=== PATIENT | male | born 1940 | race African-American/Black ===

== ENCOUNTER 2019-05-04 12:25 | Observation (INO) | payer MEDICARE, OTHER ==
[~2019-05-04] VITALS: Ht 188 cm; Wt 86.4 kg
[~2019-05-04 12:25] MED LIST: AMLODIPINE BESYL5 MG PO; GABAPENTIN600 MG PO; GLIMEPIRIDE1 MG PO; HYDROCODON-ACE1 EAC9 PO; LABETALOL HCL300 MG PO; LEVOTHYROXINE125 MCG PO; LISINOPRIL40 MG PO
--- OUTSIDE RECORDS SUMMARY | 2019-05-04 12:29 | XMS REPORT | Continuity of Care Document ---
Author Author [facility] Address Unknown Phone Unavailable Care Team Providers Care Water Supply Technician Name Role Phone [email or web address] Unavailable Unavailable Problems Problem Status Onset Date Classification Date Reported Comments Source WEAKNESS Active 11/18/2018 [facility] ABNORMAL LABS Active 11/18/2018 [facility] UNK Active 06/08/2015 [facility] 240.9 242.90 Active 06/08/2015 [facility] 242.00 GOITER, TOXIC DIFFUSE / 241.0 COL Active 11/29/2014 [facility] 729.81 - SWELLING OF [place] Active 01/07/2014 [facility] [place] 242.90 HYPERTHYROIDISM Active 11/10/2013 [facility] Acid reflux Active Problem 11/22/2018 [facility] Chronic pain1 Active Problem 11/22/2018 back [facility] Diabetes Active Problem 11/22/2018 [facility] Goiter Active Problem 11/22/2018 [facility] BELKOFSKI (Confirmed) Active Problem 11/22/2018 [facility] Hypertension Active Problem 11/22/2018 [facility] Irregular heartbeat2 Active Problem 11/22/2018 on Labetalol [facility] Neuropathy3 Active Problem 11/22/2018 bilateral upper and lower extremities [facility] Dentures2 Active Problem 06/26/2015 upper [facility] Irregular heartbeat3 Active Problem 06/26/2015 on Labetalol [facility] Neuropathy4 Active Problem 06/26/2015 bilateral upper and lower extremities [facility] GOITER NOS Active [facility] THYROTOX NOS NO CRISIS Active [facility] Medications Medication Details Route Status Patient Instructions Ordering Provider Order Date Source 12 HR Acetaminophen 325 MG / Oxycodone Hydrochloride 7.5 MG Extended Release Oral Tablet 1 tab, PO, PRN, 0 Refill(s) Active 11/19/2018 [facility] Protonix 40 mg, 1 tab, Route: PO, Drug form: ECTAB, Before Breakfast, Dosing Weight 95.455, kg, Start date: 11/19/18 7:30:00 [employer], Duration: 30 day, Stop date: 12/18/18 7:30:00 CDTNotes: Tablet should not be c hewed or crushed. (Same as: Protonix) Inactive 11/19/2018 [facility] Lovenox 40 mg, 0.4 mL, Route: SUB-Q, Drug form: INJ, [id number], Dosing Weight 95.455, kg, Start date: 11/18/18 20:00:00 [employer], Duration: 30 day, Stop date: 12/17/18 20:00:00 CDTNotes: (Same as: Lovenox) No Longer Active 11/19/2018 [facility] NS 1,000 mL 1,000 mL, Rate: 75 ml/hr, Infuse over: 13.3 hr, Route: IV, Dosing Weight 95.455 kg, Total Volume: 1,000, Start date: 11/18/18 19:42:00 [employer], Duration: 30 day, Stop date: 12/18/18 19:41:00 CDT, 2.24, m2 No Longer Active 11/19/2018 [facility] Mucinex 600 mg, 1 tab, Route: PO, Drug form: ERTAB, Q12H, Dosing Weight 95.455, kg, PRN Congestion, Start date: 11/18/18 19:27:00 [employer], Duration: 30 day, Stop date: 12/18/18 19:26:00 CDTNotes: (Same as: Guaifenesin LA, Humibid LA, Mucinex) "Do Not Crush" Take medication with plenty of water. No Longer Active 11/19/2018 [facility] Tessalon Perles 100 mg, 1 cap, Route: PO, Drug form: CAP, TID, Dosing Weight 95.455, kg, PRN Cough, Start date: 11/18/18 19:27:00 [employer], Duration: 30 day, Stop date: 12/18/18 19:26:00 CDTNotes: (Same As: Tessalon Olga es) "Do Not Crush" No Longer Active 11/19/2018 [facility] Simethicone 80 mg, 1 tab, Route: CHEW, Drug form: CHEWTAB, QID-After Meals, Dosing Weight 95.455, kg, PRN as needed for gas, Start date: 11/18/18 19:27:00 [employer], Duration: 30 day, Stop date: 12/18/18 19:26:00 CDTNotes: (Same as: Mylicon) No Longer Active 11/19/2018 [facility] Maalox Advanced Regular Strength SUSP 30 mL, Route: PO, Drug Form: SUSP, Dosing Weight 95.455, kg, QID-After Meals, PRN as needed for indigestion, Routine, Start date: 11/18/18 19:27:00 [employer], Duration: 30 day, Stop date: 12/18/18 19:26:00 CDTNotes: (aluminum hydroxide-magnesium hyd-simethicone 280-101-38pp/5ml 30 ml ud SRIDEVI) No Longer Active 11/19/2018 [facility] Ondansetron 4 mg, 2 mL, Route: IVP, Drug form: INJ, Q6H, Dosing Weight 95.455, kg, PRN Nausea & Vomiting, Start date: 11/18/18 19:27:00 [employer], Duration: 30 day, Stop date: 12/18/18 19:26:00 CDTNotes: (Same as: Erin) MEDICATION WASTE Product Size: 4 mg Product Wasted: ___ mg No Longer Active 11/19/2018 [facility] Diphenhydramine 25 mg, 1 tab, Route: PO, Drug form: TAB, Q6H, Dosing Weight 95.455, kg, PRN as needed for allergy symptoms, Start date: 11/18/18 19:27:00 [employer], Duration: 30 day, Stop date: 12/18/18 19:26:00 CDT No Longer Active 11/19/2018 [facility] Acetaminophen 650 mg, 2 tab, Route: PO, Drug form: TAB, Q6H, Dosing Weight 95.455, kg, PRN For Temp > 100.4 F, Start date: 11/18/18 19:27:00 [employer], Duration: 30 day, Stop date: 12/18/18 19:26:00 CDTNotes: Do not exceed 4 gm/day. (Same as: Tylenol) No Longer Active 11/19/2018 [facility] Melatonin 3 mg, 1 tab, Route: PO, Drug form: TAB, Bedtime, Dosing Weight 95.455, kg, PRN Insomnia, Start date: 11/18/18 19:27:00 [employer], Duration: 30 day, Stop date: 12/18/18 19:26:00 CDTNotes: (Same as: Melatonin) No Longer Active 11/19/2018 [facility] Trazodone 50 mg, 1 tab, Route: PO, Drug form: TAB, Bedtime, Dosing Weight 95.455, kg, PRN Insomnia, Start date: 11/18/18 19:27:00 [employer], Duration: 30 day, Stop date: 12/18/18 19:26:00 CDTNotes: (Same As: Desyrel) No Longer Active 11/19/2018 [facility] Glucagon 1 mg, Route: IM, Drug form: PDR/INJ, PRN, Dosing Weight 95.455, kg, PRN Blood Glucose Results, Start date: 11/18/18 19:27:00 [employer], Duration: 30 day, Stop date: 12/18/18 20:26:00 CDT No Longer Active 11/19/2018 [facility] Docusate 100 mg, 1 cap, Route: PO, Drug form: CAP, BID, Dosing Weight 95.455, kg, PRN as needed for constipation, Start date: 11/18/18 19:27:00 [employer]E [employer], Duration: 30 day, Stop date: 12/18/18 19:26:00 CDTNotes: (Same as: Colace) (Do Not Crush) No Longer Active 11/19/2018 [facility] POLYETHYLENE GLYCOL 3350 17 gm, 1 pkt, Route: PO, Drug form: PWDR, Daily, Dosing Weight 95.455, kg, PRN Constipation, Start date: 11/18/18 19:27:00 [employer], Duration: 30 day, Stop date: 12/18/18 19:26:00 CDTNotes: Dissolve in 8 oz of water or juice. (Same as: Miralax) No Longer Active 11/19/2018 [facility] Bisacodyl 10 mg, 1 supp, Route: DE, Drug form: SUPP, Daily, Dosing Weight 95.455, kg, PRN Constipation, Start date: 11/18/18 19:27:00 [employer]E [employer], Duration: 30 day, Stop date: 12/18/18 19:26:00 CDTNotes: (Same As: Dulcolax, Bisco-Lax) No Longer Active 11/19/2018 [facility] Seroquel 25 mg, 1 tab, Route: PO, Drug form: TAB, BID, Dosing Weight 95.455, kg, PRN Agitation, Start date: 11/18/18 19:27:00 [employer], Duration: 30 day, Stop date: 12/18/18 19:26:00 CDTNotes: (Same as: SEROquel) No Longer Active 11/19/2018 [facility] Hydralazine 10 mg, 0.5 mL, Route: IVP, Drug form: INJ, Q4H, Dosing Weight 95.455, kg, PRN Hypertension, Priority: Routine, Start date: 11/18/18 19:27:00 [employer], Duration: 30 day, Stop date: 12/18/18 19:26:00 CDTNotes: (Same as: Apresoline) Push over 5 minutes No Longer Active 11/19/2018 [facility] Morphine 2 mg, 1 mL, Route: IVP, Drug form: SOLN, Q4H, Dosing Weight 95.455, kg, PRN Pain Score 7-10, Start date: 11/18/18 19:27:00 [employer], Duration: 30 day, Stop date: 12/18/18 19:26:00 CDT No Longer Active 11/19/2018 [facility] Robitussin-AC oral syrup 10 ml, Route: PO, Drug Form: LIQ, Dosing Weight 95.455, kg, Q4H, PRN Cough/Congestion, Start date: 11/18/18 19:27:00 [employer]E [employer], Duration: 30 day, Stop date: 12/18/18 19:26:00 CDTNotes: (Same As: Robitussin AC) No Longer Active 11/19/2018 [facility] Acetaminophen 325 MG / Hydrocodone Bitartrate 5 MG Oral Tablet [[place] 5/325] 1 tab, Route: PO, Drug Form: TAB, Dosing Weight 95.455, kg, Q6H, PRN Pain Score 1-3, Start date: 11/18/18 19:27:00 [employer]E [employer], Duration: 30 day, Stop date: 12/18/18 19:26:00 CDTNotes: (Same as: [place] 325/5) Do not exceed 4gm/day of acetaminophen. No Longer Active 11/19/2018 [facility] Nicotine 21 mg, 1 patch, Route: TOP, Drug form: ERFILM, Daily, Dosing Weight 95.455, kg, PRN as needed for smoking cessation, Start date: 11/18/18 19:27:00 [employer]E [employer], Duration: 30 day, Stop date: 12/18/18 19:26:00 CDT Notes: (Same as: Habitrol) "Remove old patch before application of new patch" WASTE: F/P - P Waste Black; E - P Waste Black No Longer Active 11/19/2018 [facility] Dextrose 50% Syringe 25 gm, 50 mL, Route: IVP, Drug Form: INJ, Dosing Weight 95.455, kg, PRN, PRN Blood Glucose Results, Start date: 11/18/18 19:27:00 [employer], Duration: 30 day, Stop date: 12/18/18 20:26:00 CDT No Longer Active 11/19/2018 [facility] Saline Flush 0.9% 10 mL, Route: IVP, Drug Form: INJ, Dosing Weight 95.455, kg, PRN, PRN Line Flush, Start date: 11/18/18 14:40:00 [employer], Duration: 30 day, Stop date: 12/18/18 15:39:00 CDTNotes: (Same as: BD Posiflush) No Longer Active 11/18/2018 [facility] pneumococcal capsular polysaccharide type 1 vaccine / pneumococcal capsular polysaccharide type 10A vaccine / pneumococcal capsular polysaccharide type 11A vaccine / pneumococcal capsular polysaccharide type 12F vaccine / pneumococcal capsular polysacchar 0.5 mL, Route: IM, Drug Form: INJ, Daily, Start date: 06/23/15 9:00:00, Duration: 1 doses or times, Stop date: 06/23/15 9:00:00Notes: (Same as: Pneumovax 23) Refrigerate Inactive 06/23/2015 [facility] Methimazole 10 mg, 1 tab, Route: PO, Drug form: TAB, Every Other Day, Dosing Weight 88.636, kg, Start date: 06/23/15 9:00:00, Duration: 30 day, Stop date: 07/21/15 9:00:00 Inactive 06/23/2015 [facility] Lisinopril 40 mg, 2 tab, Route: PO, Drug form: TAB, Daily, Dosing Weight 88.636, kg, Start date: 06/23/15 9:00:00, Duration: 30 day, Stop date: 07/22/15 9:00:00Notes: (Same as: Prinivil, Zestril) Inactive 06/23/2015 [facility] Labetalol 300 mg, 3 tab, Route: PO, Drug form: TAB, Daily, Dosing Weight 88.636, kg, Start date: 06/23/15 9:00:00, Duration: 30 day, Stop date: 07/22/15 9:00:00Notes: With food. (Same as:Trandate, Normodyne) Inactive 06/23/2015 [facility] Furosemide 80 mg, 2 tab, Route: PO, Drug form: TAB, Daily, Dosing Weight 88.636, kg, Start date: 06/23/15 9:00:00, Duration: 30 day, Stop date: 07/22/15 9:00:00Notes: (Same as: Lasix) May cause GI upset. Give with food or milk. Inactive 06/23/2015 [facility] Pravastatin 20 mg, 1 tab, Route: PO, Drug form: TAB, Bedtime, Dosing Weight 88.636, kg, Start date: 06/22/15 21:00:00, Duration: 30 day, Stop date: 07/21/15 21:00:00Notes: (Same as: Pravachol) No Longer Active 06/23/2015 [facility] latanoprost 1 drp, Route: BOTH EYES, Bedtime, Drug form: SOLN, Start date: 06/22/15 21:00:00, Duration: 30 day, Stop date: 07/21/15 21:00:00Notes: Keep refrigerated. (Same as:Xalatan) No Longer Active 06/23/2015 [facility] Amlodipine 5 mg, 1 tab, Route: PO, Drug form: TAB, Bedtime, Dosing Weight 88.636, kg, Start date: 06/22/15 21:00:00, Duration: 30 day, Stop date: 07/21/15 21:00:00Notes: (Same as: Norvasc) No Longer Active 06/23/2015 [facility] glimepiride 1 mg, 1 tab, Route: PO, Drug form: TAB, BID, Dosing Weight 88.636, kg, Start date: 06/22/15 17:00:00, Duration: 30 day, Stop date: 07/22/15 9:00:00Notes: (Same as: Amaryl) No Longer Active 06/22/2015 [facility] glucagon 1 mg, Route: IM, Drug form: PDR/INJ, PRN, PRN Blood Glucose Results, Start date: 06/22/15 15:56:00, Duration: 30 day, Stop date: 07/22/15 15:55:00 No Longer Active 06/22/2015 [facility] Dextrose 50% in Water IV 50 mL, Route: IVP, Start date: 06/22/15 15:55:00, Duration: 30 day, Stop date: 07/22/15 15:54:00, PRN Blood Glucose Results No Longer Active 06/22/2015 [facility] Dextrose 50% in Water IV 25 mL, Route: IVP, Start date: 06/22/15 15:54:00, Stop date: 07/22/15 15:53:00, PRN Blood Glucose Results No Longer Active 06/22/2015 [facility] gabapentin 400 MG Oral Capsule 400 mg, 1 cap, Route: PO, Drug form: CAP, TID, Dosing Weight 88.636, kg, Start date: 06/22/15 13:00:00, Duration: 30 day, Stop date: 07/22/15 9:00:00Notes: (Same as: Neurontin) No Longer Active 06/22/2015 [facility] dorzolamide 1 drp, Route: BOTH EYES, TID, Drug form: SOLN, Start date: 06/22/15 13:00:00, Duration: 30 day, Stop date: 07/22/15 9:00:00Notes: Same as: Trusopt Non-Formulary Drug No Longer Active 06/22/2015 [facility] Insulin, Aspart, Human 4 unit, 0.04 mL, Route: SUB-Q, Drug form: SOLN, TID-Before Meals, Dosing Weight 88.636, kg, PRN Blood Glucose Results, Start date: 06/22/15 11:04:00, Duration: 30 day, Stop date: 07/22/15 11:03:00Notes: Roll in palms of hands gently; Do not shake vigorously. (Same as: NovoLOG) "single patient use only" Stable for 28 days at room temperature. Expires in days from Date No Longer Active 06/22/2015 [facility] Acetaminophen 325 MG / Hydrocodone Bitartrate 5 MG Oral Tablet 1 tab, Route: PO, Drug Form: TAB, Dosing Weight 88.636, kg, Q4H, PRN Pain Score 1-3, Start date: 06/22/15 11:04:00, Duration: 30 day, Stop date: 07/22/15 11:03:00Notes: (Same as: [place] 325/5) Do not exceed 4gm/day of acetaminophen. No Longer Active 06/22/2015 [facility] Morphine 2 mg, 1 mL, Route: IVP, Drug form: INJ, Q3H, Dosing Weight 88.636, kg, PRN Pain Score 1-3, Start date: 06/22/15 11:04:00, Duration: 30 day, Stop date: 07/22/15 11:03:00Notes: (Same as:MORPhine Sulfate) No Longer Active 06/22/2015 [facility] Calcium Chloride 0.0014 MEQ/ML / Potassium Chloride 0.004 MEQ/ML / Sodium Chloride 0.103 MEQ/ML / Sodium Lactate 0.028 MEQ/ML Injectable Solution 1,000 mL, Rate: 75 ml/hr, Infuse over: 13.3 hr, Route: IV, Dosing Weight 88.636 kg, Total Volume: 1,000, Start date: 06/22/15 11:04:00, Duration: 30 day, Stop date: 07/22/15 11:03:00 No Longer Active 06/22/2015 [facility] Ondansetron 4 mg, 2 mL, Route: IVP, Drug form: INJ, Q6H, Dosing Weight 88.636, kg, PRN Nausea & Vomiting, Start date: 06/22/15 11:04:00, Duration: 30 day, Stop date: 07/22/15 11:03:00Notes: (Same as: Erin) MEDICATION WASTE Product Size: 4 mg Product Wasted: ___ mg No Longer Active 06/22/2015 [facility] Diphenhydramine 25 mg, 1 tab, Route: PO, Drug form: TAB, Bedtime, Dosing Weight 88.636, kg, PRN Insomnia, Start date: 06/22/15 11:04:00, Duration: 30 day, Stop date: 07/22/15 11:03:00 No Longer Active 06/22/2015 [facility] Acetaminophen 325 MG / Hydrocodone Bitartrate 10 MG Oral Tablet [[place] 10/325] 1 tab, Route: PO, Drug Form: TAB, Dosing Weight 88.636, kg, Q6H, PRN Pain, Start date: 06/22/15 11:03:00, Duration: 30 day, Stop date: 07/22/15 11:02:00 Inactive 06/22/2015 [facility] Ofirmev 1,000 mg, Route: IV, Drug form: INJ, ONCE, Dosing Weight 88.636, kg, PRN Pain, for > or=50 kg, Start date: 06/22/15 11:03:00 Inactive 06/22/2015 [facility] Ondansetron 4 mg, Route: IVP, ONCE, Dosing Weight 88.636, kg, PRN Nausea & Vomiting, Start date: 06/22/15 11:03:00 Inactive 06/22/2015 [facility] Hydromorphone 0.5 mg, Route: IVP, Q5Min, Dosing Weight 88.636, kg, PRN Pain Score 7-10, Start date: 06/22/15 11:03:00, Duration: 4 doses or times, Stop date: Limited # of times Inactive 06/22/2015 [facility] Flumazenil 0.2 mg, Route: IVP, PRN, Dosing Weight 88.636, kg, PRN Benzodiazepine Reversal, Initial dose, Start date: 06/22/15 11:03:00, Duration: 30 day, Stop date: 07/22/15 11:02:00 Inactive 06/22/2015 [facility] Naloxone 0.04 mg, Route: IVP, Q2MIN, Dosing Weight 88.636, kg, PRN Narcotic Reversal, Start date: 06/22/15 11:03:00, Duration: 8 doses or times, Stop date: Limited # of times Inactive 06/22/2015 [facility] Fentanyl 50 microgram, Route: IVP, Q5Min, Dosing Weight 88.636, kg, PRN Pain Score 7-10, Start date: 06/22/15 11:03:00, Duration: 2 doses or times, Stop date: Limited # of times Inactive 06/22/2015 [facility] Oxycodone 5 mg, Route: PO, Drug form: TAB, Q4H, Dosing Weight 88.636, kg, PRN Pain Score 4-6, Start date: 06/22/15 11:03:00, Duration: 30 day, Stop date: 07/22/15 11:02:00 Inactive 06/22/2015 [facility] Sodium Chloride 0.154 MEQ/ML Injectable Solution 1,000 mL, Rate: 25 ml/hr, Infuse over: 40 hr, Route: IV, Dosing Weight 88.636 kg, Total Volume: 1,000, Start date: 06/22/15 7:27:00, Duration: 30 day, Stop date: 07/22/15 7:26:00 Inactive 06/22/2015 [facility] Calcium Chloride 0.0014 MEQ/ML / Potassium Chloride 0.004 MEQ/ML / Sodium Chloride 0.103 MEQ/ML / Sodium Lactate 0.028 MEQ/ML Injectable Solution 1,000 mL, Rate: 25 ml/hr, Infuse over: 40 hr, Route: IV, Dosing Weight 88.636 kg, Total Volume: 1,000, Start date: 06/22/15 7:27:00, Duration: 30 day, Stop date: 07/22/15 7:26:00 Inactive 06/22/2015 [facility] Cefazolin 2 gm, Route: IVPB, ONCALL, Dosing Weight 88.636, kg, Start date: 06/22/15 7:00:00, Duration: 30 day, Stop date: 07/22/15 6:59:00 Inactive 06/22/2015 [facility] Dexamethasone 8 mg, Route: IV, ONCALL, Dosing Weight 88.636, kg, Start date: 06/22/15 7:00:00, Duration: 30 day, Stop date: 07/22/15 6:59:00 Inactive 06/22/2015 [facility] hydromorphone 4 mg oral tablet 4 mg=1 tab, PO, Bedtime, PRN Pain, Back Pain, 0 Refill(s)Special Instructions: Back Pain Active 06/17/2015 [facility] amLODIPine 5 mg oral tablet 5 mg=1 tab, PO, Bedtime, # 30 tab, 0 Refill(s) Active 06/17/2015 [facility] dorzolamide 1 drp, BOTH EYES, TID, 0 Refill(s) Active 06/17/2015 [facility] latanoprost 1 drp, BOTH EYES, Bedtime, 0 Refill(s) Active 06/17/2015 [facility] Acetaminophen 325 MG / Hydrocodone Bitartrate 10 MG Oral Tablet [[place] 10/325] 1 tab, PO, TID, PRN Pain, # 60 tab, 0 Refill(s) Active 06/17/2015 [facility] lisinopril 40 mg oral tablet 40 mg=1 tab, PO, Daily, # 30 tab, 0 Refill(s) Active 06/17/2015 [facility] gabapentin 400 MG Oral Capsule 400 mg=1 cap, PO, TID, # 90 cap, 1 Refill(s) Active 06/17/2015 [facility] furosemide 80 mg oral tablet 80 mg=1 tab, PO, Daily, # 30 tab, 0 Refill(s) Active 06/17/2015 [facility] glimepiride 1 mg oral tablet 1 mg=1 tab, PO, BID, # 30 tab, 0 Refill(s) Active 06/17/2015 [facility] pravastatin 20 mg oral tablet 20 mg=1 tab, PO, Bedtime, # 30 tab, 0 Refill(s) Active 06/17/2015 [facility] labetalol 300 mg oral tablet 300 mg=1 tab, PO, Daily, # 180 tab, 0 Refill(s) Active 06/17/2015 [facility] methimazole 10 mg oral tablet See Instructions, 1 tab every other day, 3 Refill(s)Special Instructions: 1 tab every other day No Longer Active 06/17/2015 [facility] Allergies, Adverse Reactions, Alerts Substance Category Reaction Severity Reaction type Status Date Reported Comments Source Motrin Assertion Drug allergy Active [facility] Immunizations Immunization Date Given Site Status Last Updated Comments Source pneumococcal 23-valent vaccine<sup>1</sup> 06/23/2015 Not Given [facility] pneumococcal 23-valent vaccine 06/23/2015 Not Given [facility] Results Order Name Results Value Reference Range Date Interpretation Comments Source ANEMIA STUDY Vitamin B12 Lvl >2000 254 - 1320 11/19/2018 [facility] CHEM PANEL eGFR 37 11/19/2018 Result Comment: The eGFR is calculated using the CKD-EPI formula. In most young, healthy individuals the eGFR will be >90 mL/min/1.73m2. The eGFR declines with age. An eGFR of 60-89 may be normal in some populations, particularly the elderly, for whom the CKD-EPI formula has not been extensively validated. Use of the eGFR is not recommended in the following populations:

Individuals with unstable creatinine concentrations, including patients and those with serious co-morbid conditions.

Patients with extremes in muscle mass or diet.

The data above are obtained from the National Kidney Disease Education Program (NKDEP) which additionally recommends that when the eGFR is used in patients with extremes of body mass index for purposes of drug dosing, the eGFR should be multiplied by the estimated BMI. [facility] CHEM PANEL Glucose Lvl 153 70 - 99 11/19/2018 [facility] CHEM PANEL Sodium Lvl 144 135 - 145 11/19/2018 [facility] CHEM PANEL BUN 41 7 - 22 11/19/2018 [facility] CHEM PANEL Potassium Lvl 3.2 3.5 - 5.1 11/19/2018 [facility] CHEM PANEL Creatinine Lvl 1.96 0.50 - 1.40 11/19/2018 [facility] CHEM PANEL Calcium Lvl 9.5 8.5 - 10.5 11/19/2018 [facility] CHEM PANEL AGAP 7.2 10.0 - 20.0 11/19/2018 [facility] CHEM PANEL CO2 31 24 - 32 11/19/2018 [facility] CHEM PANEL Chloride Lvl 109 95 - 109 11/19/2018 [facility] MCH 31.2 27.0 - 31.0 11/19/2018 [facility] RDW 15.9 11.5 - 14.5 11/19/2018 [facility] MCHC 33.1 32.0 - 36.0 11/19/2018 [facility] MPV 8.5 7.4 - 10.4 11/19/2018 [facility] Platelet 194 133 - 450 11/19/2018 [facility] WBC 5.4 3.7 - 10.4 11/19/2018 [facility] Hgb 12.4 14.0 - 18.0 11/19/2018 [facility] RBC 3.96 4.70 - 6.10 11/19/2018 [facility] MCV 94.4 80.0 - 94.0 11/19/2018 [facility] Hct 37.4 42.0 - 54.0 11/19/2018 [facility] LIPIDS CHD Risk 2.78 4.00 - 7.30 11/19/2018 [facility] LIPIDS Chol 139 <=199 mg/dL 11/19/2018 [facility] LIPIDS VLDL 14 11/19/2018 [facility] LIPIDS HDL 50 >=61 mg/dL 11/19/2018 [facility] LIPIDS LDL (Calculated) 75 <=99 mg/dL 11/19/2018 [facility] LIPIDS Trig 72 <=149 mg/dL 11/19/2018 [facility] SPECIAL CHEMISTRY Hgb A1C 6.9 <=5.6 % 11/19/2018 [facility] URINE AND STOOL UA Bili Negative *NA* (11/18/18 5:36 PM) Negative 11/18/2018 [facility] URINE AND STOOL UA Hyal Cast 3 0 - 2 11/18/2018 [facility] URINE AND STOOL UA Nitrite Negative (11/18/18 5:36 PM) Negative 11/18/2018 [facility] URINE AND STOOL UA Sq Epi Few /LPF Few /LPF 11/18/2018 [facility] URINE AND STOOL UA Leuk Est Small *ABN* (11/18/18 5:36 PM) Negative 11/18/2018 [facility] URINE AND STOOL UA WBC 10 0 - 5 11/18/2018 [facility] URINE AND STOOL UA Blood Negative (11/18/18 5:36 PM) Negative 11/18/2018 [facility] URINE AND STOOL UA RBC 2 0 - 2 11/18/2018 [facility] URINE AND STOOL UA Bacteria Occasional /HPF None Seen /HPF 11/18/2018 [facility] URINE AND STOOL UA Urobilinogen <=1.0 mg/dL 0.1 - 1.0 11/18/2018 [facility] URINE AND STOOL UA Protein Negative (11/18/18 5:36 PM) Negative 11/18/2018 [facility] URINE AND STOOL UA Glucose Negative *NA* (11/18/18 5:36 PM) Negative 11/18/2018 [facility] URINE AND STOOL UA Ketones Negative *NA* (11/18/18 5:36 PM) Negative 11/18/2018 [facility] URINE AND STOOL UA Mucus Few /LPF None Seen /LPF 11/18/2018 [facility] URINE AND STOOL UA pH 5.0 5.0 - 8.0 11/18/2018 [facility] URINE AND STOOL UA Spec Grav 1.020 <=1.030 11/18/2018 [facility] URINE AND STOOL UA Turbidity Slight *ABN* (11/18/18 5:36 PM) Clear 11/18/2018 [facility] URINE AND STOOL UA Color Yellow *NA* (11/18/18 5:36 PM) Yellow 11/18/2018 [facility] CARDIAC ENZYMES Total CK 523 12 - 191 11/18/2018 [facility] CARDIAC ENZYMES Troponin-I <0.02 0.00 - 0.40 11/18/2018 [facility] CARDIAC ENZYMES BNP 4 <=100 pg/mL 11/18/2018 [facility] CHEM PANEL Globulin 4.3 2.7 - 4.2 11/18/2018 [facility] CHEM PANEL B/C Ratio 20 6 - 25 11/18/2018 [facility] CHEM PANEL AGAP 7.7 10.0 - 20.0 11/18/2018 [facility] CHEM PANEL A/G Ratio 0.9 0.7 - 1.6 11/18/2018 [facility] CHEM PANEL eGFR 31 11/18/2018 Result Comment: The eGFR is calculated using the CKD-EPI formula. In most young, healthy individuals the eGFR will be >90 mL/min/1.73m2. The eGFR declines with age. An eGFR of 60-89 may be normal in some populations, particularly the elderly, for whom the CKD-EPI formula has not been extensively validated. Use of the eGFR is not recommended in the following populations:

Individuals with unstable creatinine concentrations, including patients and those with serious co-morbid conditions.

Patients with extremes in muscle mass or diet.

The data above are obtained from the National Kidney Disease Education Program (NKDEP) which additionally recommends that when the eGFR is used in patients with extremes of body mass index for purposes of drug dosing, the eGFR should be multiplied by the estimated BMI. [facility] CHEM PANEL Bili Total 0.2 0.2 - 1.3 11/18/2018 [facility] CHEM PANEL Sodium Lvl 140 135 - 145 11/18/2018 [facility] CHEM PANEL BUN 45 7 - 22 11/18/2018 [facility] CHEM PANEL Glucose Lvl 230 70 - 99 11/18/2018 [facility] CHEM PANEL Creatinine Lvl 2.30 0.50 - 1.40 11/18/2018 [facility] CHEM PANEL Potassium Lvl 3.7 3.5 - 5.1 11/18/2018 [facility] CHEM PANEL Calcium Lvl 9.8 8.5 - 10.5 11/18/2018 [facility] CHEM PANEL CO2 30 24 - 32 11/18/2018 [facility] CHEM PANEL Chloride Lvl 106 95 - 109 11/18/2018 [facility] CHEM PANEL Alk Phos 64 39 - 136 11/18/2018 [facility] CHEM PANEL AST 20 0 - 37 11/18/2018 [facility] CHEM PANEL ALT 34 0 - 65 11/18/2018 [facility] CHEM PANEL Albumin Lvl 3.9 3.5 - 5.0 11/18/2018 [facility] CHEM PANEL Total Protein 8.2 6.4 - 8.4 11/18/2018 [facility] HEMATOLOGY Lymphocytes # 0.9 1.0 - 5.5 11/18/2018 [facility] HEMATOLOGY Monocytes # 0.6 0.0 - 0.8 11/18/2018 [facility] HEMATOLOGY Eosinophils # 0.1 0.0 - 0.5 11/18/2018 [facility] HEMATOLOGY Monocytes 10.7 2.0 - 12.0 11/18/2018 [facility] HEMATOLOGY Segs 69.9 45.0 - 75.0 11/18/2018 [facility] HEMATOLOGY Lymphocytes 16.3 20.0 - 40.0 11/18/2018 [facility] HEMATOLOGY Eosinophils 2.6 0.0 - 4.0 11/18/2018 [facility] HEMATOLOGY Basophils 0.5 0.0 - 1.0 11/18/2018 [facility] HEMATOLOGY Neutrophils # 3.9 1.5 - 8.1 11/18/2018 [facility] HEMATOLOGY RDW 15.8 11.5 - 14.5 11/18/2018 [facility] HEMATOLOGY MCH 30.9 27.0 - 31.0 11/18/2018 [facility] HEMATOLOGY MCHC 33.0 32.0 - 36.0 11/18/2018 [facility] HEMATOLOGY MCV 93.7 80.0 - 94.0 11/18/2018 [facility] HEMATOLOGY Platelet 210 133 - 450 11/18/2018 [facility] HEMATOLOGY MPV 7.9 7.4 - 10.4 11/18/2018 [facility] HEMATOLOGY Hct 39.9 42.0 - 54.0 11/18/2018 [facility] HEMATOLOGY Hgb 13.2 14.0 - 18.0 11/18/2018 [facility] HEMATOLOGY WBC 5.6 3.7 - 10.4 11/18/2018 [facility] HEMATOLOGY RBC 4.26 4.70 - 6.10 11/18/2018 [facility] CHEM PANEL Calcium Lvl 9.2 8.5 - 10.5 06/23/2015 [facility] CHEM PANEL Calcium Lvl 9.3 8.5 - 10.5 06/23/2015 [facility] CHEM PANEL Calcium Lvl 9.4 8.5 - 10.5 06/22/2015 [facility] PARATHYROID PROFILE PTH Intact 18.8 11.1 - 79.5 06/22/2015 [facility] PARATHYROID PROFILE PTH Intact 13.3 11.1 - 79.5 06/22/2015 [facility] CHEM PANEL eGFR 40 06/17/2015 Result Comment: The eGFR is calculated using the CKD-EPI formula. In most young, healthy individuals the eGFR will be >90 mL/min/1.73m2. The eGFR declines with age. An eGFR of 60-89 may be normal in some populations, particularly the elderly, for whom the CKD-EPI formula has not been extensively validated. Use of the eGFR is not recommended in the following populations:

Individuals with unstable creatinine concentrations, including patients and those with serious co-morbid conditions.

Patients with extremes in muscle mass or diet.

The data above are obtained from the National Kid[employer] Disease Education Program (NKDEP) which additionally recommends that when the eGFR is used in patients with extremes of body mass index for purposes of drug dosing, the eGFR should be multiplied by the estimated BMI. [facility] CHEM PANEL Creatinine Lvl 1.9 0.5 - 1.4 06/17/2015 [facility] CHEM PANEL BUN 29 7 - 22 06/17/2015 [facility] CHEM PANEL Glucose Lvl 145 70 - 99 06/17/2015 [facility] CHEM PANEL Sodium Lvl 138 135 - 145 06/17/2015 [facility] CHEM PANEL Potassium Lvl 4.2 3.5 - 5.1 06/17/2015 [facility] CHEM PANEL Chloride Lvl 105 95 - 109 06/17/2015 [facility] CHEM PANEL AGAP 6.2 10.0 - 20.0 06/17/2015 [facility] CHEM PANEL CO2 31 24 - 32 06/17/2015 [facility] HEMATOLOGY Monocytes # 0.5 0.0 - 0.8 06/17/2015 [facility] HEMATOLOGY Eosinophils # 0.3 0.0 - 0.5 06/17/2015 [facility] HEMATOLOGY Segs 61.4 45.0 - 75.0 06/17/2015 [facility] Segs-Bands # 3.2 1.5 - 8.1 06/17/2015 [facility] Monocytes 8.9 2.0 - 12.0 06/17/2015 [facility] Lymphocytes 24.0 20.0 - 40.0 06/17/2015 [facility] Eosinophils 5.1 0.0 - 4.0 06/17/2015 [facility] Basophils 0.6 0.0 - 1.0 06/17/2015 [facility] Lymphocytes # 1.2 1.0 - 5.5 06/17/2015 [facility] PTT 29.2 22.9 - 35.8 06/17/2015 [facility] PT 12.5 12.0 - 14.7 06/17/2015 [facility] INR 0.90 0.85 - 1.17 06/17/2015 [facility] RBC 4.35 4.70 - 6.10 06/17/2015 [facility] WBC 5.2 3.7 - 10.4 06/17/2015 [facility] Hgb 12.6 14.0 - 18.0 06/17/2015 [facility] MCV 91.4 80.0 - 94.0 06/17/2015 [facility] Hct 39.7 42.0 - 54.0 06/17/2015 [facility] MCH 29.1 27.0 - 31.0 06/17/2015 [facility] RDW 15.3 11.5 - 14.5 06/17/2015 [facility] MCHC 31.8 32.0 - 36.0 06/17/2015 [facility] MPV 9.3 7.4 - 10.4 06/17/2015 [facility] Platelet 121 133 - 450 06/17/2015 [facility] Pathology Reports No Data Provided for This Section Diagnostic Reports Report Value Date Source Brain wo contrast MRI Patient Name: PIERRE ABEBE : 1940; Age: 78 years Male MR: [id number] Study: Brain wo contrast MRI 11/18/2018 19:39 [employer] Clinical Indication: - ams. COMPARISON: Computed axial tomography scan 11/18/2018. TECHNIQUE: MRI of the brain is performed without gadolinium contrast. Multiplanar T1, T2, FLAIR and diffusion weighted imaging are submitted. Full and complete exam was performed. FINDINGS: BRAIN PARENCHYMA: There is mild generalized cortical atrophy. Moderate nonspecific periventricular white matter foci of increased T2 and FLAIR signal are seen, likely related to small vessel disease. There is no mass effect or midline shift. There are no extra-axial fluid collections. The corpus callosum appears normal. There is no diffusion weighted imaging or ADC map abnormality to suggest acute/subacute ischemia. There is no magnetic susceptibility to suggest recent or remote intracranial hemorrhage. CEREBELLOPONTINE REGIONS AND SKULL BASE: The cerebellopontine angles appear normal. The skull base, craniocervical junction, and brainstem are normal. The optic chiasm is normal. The sella and pineal regions are normal. VENTRICLES: The ventricles are normal in size and configuration. The basilar cisterns are normal. VESSELS: The expected intracranial flow voids are present. ORBITS, VISUALIZED PARANASAL SINUSES AND MASTOIDS: The visualized orbits are normal. The paranasal sinuses are normal. The mastoid air cells are clear. IMPRESSION: 1. No acute intracranial abnormality without acute stroke, hemorrhage or mass. 2. Generalized brain parenchymal atrophy with associated nonspecific periventricular white matter disease changes/small vessel disease. : [id number] 11/18/2018 [facility] Ext Lower Venous Doppler Bilat US EXAM: Bilateral lower extremity venous Doppler ultrasound HISTORY: Bilateral lower extremity edema COMPARISON: Ultrasound 01/12/2018 TECHNIQUE: Sonographic evaluation of the bilateral lower extremity deep veins was performed using high resolution B-mode imaging, along with pulse and color Doppler imaging. FINDINGS: Right lower extremity: The common femoral, femoral and popliteal veins and visualized posterior tibial/calf veins are patent. Left lower extremity: The common femoral, femoral and popliteal veins and visualized posterior tibial/calf veins are patent. IMPRESSION: No deep vein thrombosis is seen in the lower extremities. TVU PC 11/18/2018 [facility] Chest 1view DX Clinical Indication: - lethargy; Technique: Frontal view of the chest was obtained. Comparison: None available. FINDINGS: No evidence of focal airspace consolidation, pulmonary edema, pleural effusion or pneumothorax. 2 tiny (3 mm) nodules are seen projecting over the right midlung, possibly granulomas. The cardiomediastinal silhouette is within normal limits. The trachea is midline. No acute osseous abnormality is identified. IMPRESSION: No chest radiographic evidence of acute cardiopulmonary disease. 2 tiny (3 mm) nodules are seen projecting over the right midlung, possibly granulomas. Comparison to prior chest imaging, if available, would be helpful. If no such imaging is available, a short-term radiologic follow-up (3-6 months) may be obtained. SL: SHELBIE 11/18/2018 [facility] Brain wo contrast CT Clinical Indication: - lethargy. Comparison: None. TECHNIQUE: CT images were obtained from the foramen magnum to the vertex without the use of intravenous contrast on a multidetector CT. CT imaging was performed with exposure control parameters to reduce radiation dose. Coronal and sagittal reconstructions were obtained. CT imaging performed at this location utilizes radiation dose optimization techniques which include one or more of the following: -Automated exposure control -Adjustment of the mA and/or kV according to patient size -Use of iterative reconstruction technique CT Radiation Dose DLP 1533.69 mGy-cm FINDINGS: BRAIN PARENCHYMA: The brain parenchyma is normal with normal dwyer and white interfaces. The periventricular white matter appears unremarkable. No focal mass lesions on this noncontrast head CT. No mass effect, midline shift or edema. There are no intra-axial or extra-axial fluid collections, intraventricular or intraparenchymal hemorrhage. No low attenuation demarcating areas on this non- contrast CT to suggest subacute stroke. The pineal, sellar, brainstem, cerebellum and skull base regions appear unremarkable. The visualized carotid siphon and vertebral vessels appear unremarkable on this noncontrast CT. VENTRICLES: The lateral ventricles, third and fourth ventricles appear unremarkable. The basilar cisterns are normal. ORBITS, MASTOIDS AND PARANASAL SINUSES: The visualized orbits are unremarkable. The visualized paranasal sinuses are unremarkable. The mastoid air cells are clear. SKULL: There are no osseous abnormalities. If there is further concern for intracranial pathology or acute stroke, MRI of the brain may be performed for complete assessment. IMPRESSION: No acute abnormality in the brain. SL: [id number] 11/18/2018 [facility] Thyroid US Addendum: The patient presented on 12/13/2013 for thyroid biopsy. The patient is currently on aspirin and as a result biopsy/FNA could not be performed on the current visit. The patient's thyroid ultrasound study from 11/10/2013 and nuclear medicine study from 11/16/2013 were reviewed. The nodule in the lower pole of left lobe of thyroid gland, which is felt to be nonfunctioning, is likely too deep to be accessible by ultrasound guided FNA. These findings and concerns were discussed with the patient at the time of his visit. He will discuss other options with Samantha Herring. Findings telephoned to Dr. Herring on 12/14/2014 at 1115 hours. SL:13 12/14/2014 [facility] Thyroid US Addendum: The patient presented on 12/13/2014 for thyroid biopsy. The patient is currently on aspirin and as a result biopsy/FNA could not be performed on the current visit. The patient's thyroid ultrasound study from 11/10/2013 and nuclear medicine study from 11/16/2013 were reviewed. The nodule in the lower pole of left lobe of thyroid gland, which is felt to be nonfunctioning, is likely too deep to be accessible by ultrasound guided FNA. These findings and concerns were discussed with the patient at the time of his visit. He will discuss other options with Dr. Rachell Herring. Findings telephoned to Dr. Herring on 12/14/2014 at 1115 hours. SL:13 Dictated on: 12/14/2014 11:07:36AM Interpreted by: MD Nguyen Munish Transcribed by: [email or web address] 12/14/2014 11:07:37AM Signed by: MD Nguyen Munish 12/14/2014 11:25:18AM Exam: Thyroid ultrasound Reason for Exam: Goiter. Thyrotoxicosis. Comparison Exam: None Discussion: Multiple axial and sagittal images were obtained of the thyroid gland. The right lobe of the thyroid gland measures 6.6 x 2.4 x 3.2 cm. The right lobe is enlarged and heterogeneous in echogenicity. There are multiple abutting nodules seen. The borders cannot be adequately delineated. Vascular flow within the thyroid parenchyma is slightly elevated. The isthmus measures 0.6 cm in width and is within normal limits. The left lobe of the thyroid gland measures 5.3 x 3.3 x 2.5 cm. The left lobe is enlarged and heterogeneous in echogenicity. There are multiple abutting nodules seen. The borders cannot be adequately delineated. Vascular flow within the thyroid parenchyma is slightly elevated. No lymphadenopathy seen within the thyroid region. Impression: 1. Multinodular hypervascular goiter as detailed above. Correlate for thyroiditis. 11/10/2013 [facility] [place] Consultation Notes No Data Provided for This Section Discharge Summaries No Data Provided for This Section History and Physicals No Data Provided for This Section Vital Signs Vital Sign Value Date Comments Source Systolic (mm Hg) 127 11/19/2018 [facility] Diastolic (mm Hg) 63 11/19/2018 [facility] Temperature Oral (F) 97.8 F 11/19/2018 [facility] Respitory Rate 17 11/19/2018 [facility] Heart Rate 57 11/19/2018 [facility] Heart Rate 56 11/19/2018 [facility] Respitory Rate 18 11/19/2018 [facility] Temperature Oral (F) 98.2 F 11/19/2018 [facility] Systolic (mm Hg) 137 11/19/2018 [facility] Diastolic (mm Hg) 68 11/19/2018 [facility] Systolic (mm Hg) 119 11/19/2018 [facility] Diastolic (mm Hg) 57 11/19/2018 [facility] Respitory Rate 17 11/19/2018 [facility] Heart Rate 65 11/19/2018 [facility] Temperature Oral (F) 98.3 F 11/19/2018 [facility] Weight 95.455 11/18/2018 [facility] BMI Calculated 27.02 11/18/2018 [facility] Height 187.96 cm 11/18/2018 [facility] Temperature Oral (F) 98.6 F 06/23/2015 [facility] Heart Rate 60 06/23/2015 [facility] Respitory Rate 20 06/23/2015 [facility] Systolic (mm Hg) 195 06/23/2015 [facility] Diastolic (mm Hg) 78 06/23/2015 [facility] Heart Rate 58 06/23/2015 [facility] Respitory Rate 16 06/23/2015 [facility] Systolic (mm Hg) 147 06/23/2015 [facility] Diastolic (mm Hg) 65 06/23/2015 [facility] Temperature Oral (F) 98.4 F 06/23/2015 [facility] Respitory Rate 14 06/23/2015 [facility] Temperature Oral (F) 98.7 F 06/23/2015 [facility] Heart Rate 64 06/23/2015 [facility] Systolic (mm Hg) 139 06/23/2015 [facility] Diastolic (mm Hg) 61 06/23/2015 [facility] Weight 95.455 06/22/2015 [facility] Height 208.28 cm 06/22/2015 [facility] BMI Calculated 22 06/22/2015 [facility] Weight 88.636 06/17/2015 [facility] BMI Calculated 25.09 06/17/2015 [facility] Height 187.96 cm 06/17/2015 [facility] Encounters Location Location Details Encounter Type Encounter Number Reason For Visit Attending Provider ADM Date DC Date Status Source [facility] Outpatient [id number] Allassia Herring 12/13/2014 12/14/2014 [facility] OBS Observation Patient [id number] Elsa Sampson 06/22/2015 06/23/2015 [facility] Observation [id number] Piterayesha Kolton 11/18/2018 11/19/2018 [facility] Outpatient [id number] 242.90 HYPERTHYROIDISM ALLASSIA HERRING Active [facility] Procedures Procedure Code Date Perfomer Comments Source Repair of inguinal hernia<sup>1</sup> [id number] x2 [facility] Assessment and Plan Assessment and Plan Date Source Extracted from:Title: Discharge Summary * Author: Jean-Paul Hi MD Date: 11/19/18 Discharge Information Disposition to home Condition: Stable exam medications: See med reconciliation form Diet: Heart healthy Discharge Plan In the event of any worsening symptoms patient advised to come back to the ED for further evaluation Discharge summary to greater than 35 minutes Extracted from:Title: General Admission H&P * Author: Jean-Paul Hi MD Date: 11/18/18 Impression and Plan 1. Metabolic encephalopathy now back to normal baseline 2. Lower extremity weakness 3. Chronic back pain on pain control 4. 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 Hypertension Plan: Get MRI of the brain, CT brain: Negative, neurology consultation, TSH, vitamin B12 Resume pain control medications IV fluids, a.m. labs Resume same antihypertensive medications PT/OT eval Lovenox for DVT prophylaxis 11/19/2018 [facility] Extracted from:Title: Clinical Document Author: Elsa Sampson MD Date: 06/23/15 Elsa Sampson MD ENT phone [phone] Discharge Summary: Hospital Course: over night stay unhappy due to inattention in hospital but does complain of some pain. no hoarseness, signs of hypocalcemia exam: wound healing well. no swelling antoinette 55 cc documented. removed. calcium 9.2, last pth 18. Discharge Instructions: see below Medication List Active Medications Ordered acetaminophen-hydrocodone: 1 tab, PO, Q4H, PRN: Pain Score 1-3. acetaminophen-hydrocodone: 2 tab, PO, Q4H, PRN: Pain Score 4-6. acetaminophen-hydrocodone: 1 tab, PO, TID, for 20 day, PRN: Pain, 60 tab, 0 Refill(s). amLODIPine: 5 mg, 1 tab, PO, Bedtime. amLODIPine: 5 mg, 1 tab, PO, Bedtime, 30 tab, 0 Refill(s). Dextrose 50% in Water IV: 25 gm, 50 mL, IVP, PRN, PRN: Blood Glucose Results. Dextrose 50% in Water IV: 12.5 gm, 25 mL, IVP, PRN, PRN: Blood Glucose Results. diphenhydrAMINE: 25 mg, 1 tab, PO, Bedtime, PRN: Insomnia. dorzolamide ophthalmic: 1 drp, BOTH EYES, TID. dorzolamide ophthalmic: 1 drp, BOTH EYES, TID, 0 Refill(s). furosemide: 80 mg, 2 tab, PO, Daily. furosemide: 80 mg, 1 tab, PO, Daily, 30 tab, 0 Refill(s). gabapentin: 400 mg, 1 cap, PO, TID. gabapentin: 400 mg, 1 cap, PO, TID, 90 cap, 1 Refill(s). glimepiride: 1 mg, 1 tab, PO, BID. glimepiride: 1 mg, 1 tab, PO, BID, 30 tab, 0 Refill(s). glucagon: 1 mg, IM, PRN, PRN: Blood Glucose Results. hydromorphone: 4 mg, 1 tab, PO, Bedtime, for 7 day, Back Pain, PRN: Pain, 0 Refill(s). insulin aspart: 1 unit, 0.01 mL, SUB-Q, Bedtime, PRN: Blood Glucose Results. insulin aspart: 2 unit, 0.02 mL, SUB-Q, Bedtime, PRN: Blood Glucose Results. insulin aspart: 3 unit, 0.03 mL, SUB-Q, Bedtime, PRN: Blood Glucose Results. insulin aspart: 4 unit, 0.04 mL, SUB-Q, Bedtime, PRN: Blood Glucose Results. insulin aspart: 1 unit, 0.01 mL, SUB-Q, TID-Before Meals, PRN: Blood Glucose Results. insulin aspart: 2 unit, 0.02 mL, SUB-Q, TID-Before Meals, PRN: Blood Glucose Results. insulin aspart: 3 unit, 0.03 mL, SUB-Q, TID-Before Meals, PRN: Blood Glucose Results. insulin aspart: 4 unit, 0.04 mL, SUB-Q, TID-Before Meals, PRN: Blood Glucose Results. insulin aspart: 5 unit, 0.05 mL, SUB-Q, TID-Before Meals, PRN: Blood Glucose Results. labetalol: 300 mg, 3 tab, PO, Daily. labetalol: 300 mg, 1 tab, PO, Daily, 180 tab, 0 Refill(s). Lactated Ringers Injection IV 1,000 mL: 75 ml/hr, IV, Stop: 07/22/15 11:03:00. latanoprost ophthalmic: 1 drp, BOTH EYES, Bedtime. latanoprost ophthalmic: 1 drp, BOTH EYES, Bedtime, 0 Refill(s). lisinopril: 40 mg, 2 tab, PO, Daily. lisinopril: 40 mg, 1 tab, PO, Daily, 30 tab, 0 Refill(s). methimazole: 10 mg, 1 tab, PO, Every Other Day. morphine Sulfate: 2 mg, 1 mL, IVP, Q3H, PRN: Pain Score 1-3. ondansetron: 4 mg, 2 mL, IVP, Q6H, PRN: Nausea and Vomiting. pneumococcal 23-valent vaccine: 0.5 mL, IM, Daily. pravastatin: 20 mg, 1 tab, PO, Bedtime. pravastatin: 20 mg, 1 tab, PO, Bedtime, 30 tab, 0 Refill(s). Medications Inactivated in the Last 72 Hours acetaminophen: 1,000 mg, 100 mL, PYXIS, ONCE. acetaminophen: 1,000 mg, IV, ONCE, PRN: Pain. acetaminophen-hydrocodone: 1 tab, PO, Q6H, PRN: Pain. atropine: 1 mg, 10 mL, PYXIS, ONCE. ceFAZolin: 2 gm, 100 mL, PYXIS, ONCE. ceFAZolin: 2 gm, IVPB, ONCALL. ceFAZolin: 1 gm, PYXIS, ONCE. dexamethasone: 8 mg, 2 mL, PYXIS, ONCE. dexamethasone: 8 mg, IV, ONCALL. EPINEPHrine-lidocaine: 20 mL, PYXIS, ONCE. fentaNYL: 100 microgram, 2 mL, PYXIS, ONCE. fentaNYL: 100 microgram, 2 mL, PYXIS, ONCE. fentaNYL: 50 microgram, IVP, Q5Min, PRN: Pain Score 7-10. flumazenil: 0.2 mg, IVP, PRN, PRN: Benzodiazepine Reversal. hydromorphone: 0.5 mg, IVP, Q5Min, PRN: Pain Score 7-10. hydromorphone: 1 mg, 1 mL, PYXIS, ONCE. Lactated Ringers Injection IV: 1,000 mL, PYXIS, ONCE. Lactated Ringers Injection IV: 1,000 mL, PYXIS, ONCE. Lactated Ringers Injection IV: 1,000 mL, PYXIS, ONCE. Lactated Ringers Injection IV 1000 mL: 25 ml/hr, IV, Stop: 07/22/15 7:26:00. lidocaine: 2 mL, PYXIS, ONCE. lidocaine: 10 mL, PYXIS, ONCE. methimazole: See Instructions, 1 tab every other day, 3 Refill(s). methimazole: 10 mg, 2 tab, PYXIS, ONCE. midazolam: 2 mg, 2 mL, PYXIS, ONCE. naloxone: 0.04 mg, IVP, Q2MIN, PRN: Narcotic Reversal. ondansetron: 4 mg, 2 mL, PYXIS, ONCE. ondansetron: 4 mg, 2 mL, PYXIS, ONCE. ondansetron: 4 mg, IVP, ONCE, PRN: Nausea and Vomiting. ondansetron: 4 mg, 2 mL, PYXIS, ONCE. oxyCODONE: 5 mg, PO, Q4H, PRN: Pain Score 4-6. oxyCODONE: 10 mg, PO, Q4H, PRN: Pain Score 7-10. propofol: 200 mg, 20 mL, PYXIS, ONCE. rocuronium: 50 mg, 5 mL, PYXIS, ONCE. Sodium Chloride 0.9% IV: 100 mL, PYXIS, ONCE. Sodium Chloride 0.9% IV 1000 mL: 25 ml/hr, IV, Stop: 07/22/15 7:26:00. succinylcholine: 200 mg, 10 mL, PYXIS, ONCE. Activity: no strenous Diet: diabetic diet Follow Up: 1 wk Symptoms to Watch For: signs of infection, hypocalcemia Discharge Status: stable Final Dx: s/p total thyroidectomy. hx of hypercalcemia Extracted from:Title: Clinical Document Author: Elsa Sampson MD Date: 06/22/15 ENT Progress Note Elsa Sampson MD Attending: Elsa Sampson MD Service: Ear Nose Throat Code status: None Specified=FULL CODE Reason for Admission: 240.9 242.90 Working DRG: None Documented Isolation: None Documented Consulting Physicians: (none on file) Allergies: Motrin Vitals and Temp: Vitals Tmp(F) Pulse BP RR SpO2 FIO2 06/22 13:45 ---- 73 168/85 15 100 2.0L/m 06/22 13:30 97.1 83 164/83 16 98 2.0L/m 06/22 13:15 ---- 76 169/63 11 95 2.0L/m 06/22 13:00 ---- 85 164/85 16 92 --- 06/22 12:45 ---- 83 164/83 15 92 --- 24 Hr Tmax: 98.3F (36.83c) at 06/22 06:30 Vital Signs are the last 5 in the past 48 hours. SUBJECTIVE: sleepy OBJECTIVE: c/o throat pain. no sob, voice intact. intact pth 13 ( wnl.) ca 10 ( wnl.) EXAM: incision intact no erythema/ hematoma antoinette drain sanguinous 30 cc ASSESSMENT: s/p total thyroidectomy PLAN and TREATMENT: 23 hour observation. antoinette drain. pain control. will observe calcium/ pth level. will cont methamozole for now due to previous hyperthryoid. DIAGNOSES and PROBLEMS: Active Problems (9) Acid reflux Chronic pain Dentures Diabetes Goiter [place] (hard of hearing) Hypertension Irregular heartbeat Neuropathy I/O Intake Output Balance 06/22/2015 7a-3p 1500.00 50.00 1450.00 As of 13:58 3p-11p 0.00 0.00 0.00 11p-7a 0.00 0.00 0.00 Totals 1500.00 50.00 1450.00 06/21/2015 7a-3p 0.00 0.00 0.00 3p-11p 0.00 0.00 0.00 11p-7a 0.00 0.00 0.00 Totals 0.00 0.00 0.00 06/20/2015 7a-3p 0.00 0.00 0.00 3p-11p 0.00 0.00 0.00 11p-7a 0.00 0.00 0.00 Totals 0.00 0.00 0.00 Medications (31) Active Scheduled Meds (10): 06/22/15 amLODIPine 5 mg PO Bedtime 06/22/15 dorzolamide ophthalmic 1 drp BOTH EYES TID 06/23/15 furosemide 80 mg PO Daily 06/22/15 gabapentin (gabapentin 400 mg oral capsule) 400 mg PO TID 06/22/15 glimepiride 1 mg PO BID 06/23/15 labetalol 300 mg PO Daily 06/22/15 latanoprost ophthalmic 1 drp BOTH EYES Bedtime 06/23/15 lisinopril 40 mg PO Daily 06/23/15 methimazole PO Every Other Day 06/22/15 pravastatin 20 mg PO Bedtime Unscheduled Meds: None PRN Meds (20): 06/22/15 acetaminophen-hydrocodone (acetaminophen-hydrocodone 325 mg-5 mg oral tablet) 1 tab PO Q4H 06/22/15 acetaminophen-hydrocodone (acetaminophen-hydrocodone 325 mg-5 mg oral tablet) 2 tab PO Q4H 06/22/15 diphenhydrAMINE 25 mg PO Bedtime 06/22/15 fentaNYL 50 microgram IVP Q5Min 06/22/15 flumazenil 0.2 mg IVP PRN 06/22/15 hydromorphone 0.5 mg IVP Q5Min 06/22/15 insulin aspart 1 unit SUB-Q Bedtime 06/22/15 insulin aspart 2 unit SUB-Q Bedtime 06/22/15 insulin aspart 3 unit SUB-Q Bedtime 06/22/15 insulin aspart 4 unit SUB-Q Bedtime 06/22/15 insulin aspart 1 unit SUB-Q TID-Before Meals 06/22/15 insulin aspart 2 unit SUB-Q TID-Before Meals 06/22/15 insulin aspart 3 unit SUB-Q TID-Before Meals 06/22/15 insulin aspart 4 unit SUB-Q TID-Before Meals 06/22/15 insulin aspart 5 unit SUB-Q TID-Before Meals 06/22/15 morphine Sulfate 2 mg IVP Q3H 06/22/15 naloxone 0.04 mg IVP Q2MIN 06/22/15 ondansetron 4 mg IVP Q6H 06/22/15 oxyCODONE 5 mg PO Q4H 06/22/15 oxyCODONE 10 mg PO Q4H One Time Meds: None Continuous Infusions (1): 06/22/15 Lactated Ringers Injection IV 1000 mL 1,000 mL 75 ml/hr 24hr Labs 06/22 1202 Calcium Lvl 10.0 PTH Intact 13.3 06/22 0620 Glucose POC 124 H 06/23/2015 [facility] Plan of Care No Data Provided for This Section Social History Social History Date Source Social History TypeResponse Alcohol Previous treatment: None. Smoking Status Never smoker; Ready to change: No; Concerns about tobacco use in household: No; Exposure to Tobacco Smoke None; Cigarette Smoking Last 365 Days No; Reg Smoking Cessation Counseling No entered on: 11/18/18 06/17/2015 [facility] Family History No Data Provided for This Section Advance Directives No Data Provided for This Section Functional Status No Data Provided for This Section
--- OUTSIDE RECORDS SUMMARY | 2019-05-04 12:29 | XMS REPORT | Summary of Care ---
Author Organization Unknown Address Unknown Phone Unavailable Encounter HQ Encntr_alias(FIN) [id number] Date(s): 12/13/14 - 12/13/14 [facility] [address] [place] [address]- Discharge Disposition: Home Physician Attending: Ana Euceda MD Physician_Referring: Ana Euceda MD Vital Signs No data available for this section Problem List No data available for this section Allergies, Adverse Reactions, Alerts Substance Reaction Severity Status NKDA Active Medications No data available for this section Results No data available for this section Immunizations No data available for this section Procedures No data available for this section Social History No data available for this section Assessment and Plan No data available for this section
--- OUTSIDE RECORDS SUMMARY | 2019-05-04 12:29 | XMS REPORT | Summary of Care ---
Author Author [facility] Organization [facility] Address Unknown Phone Unavailable Encounter HERBERTH Fernandez(EZIO) [id number] Date(s): 11/18/18 - 11/19/18 [facility] [address] [place] [address]- Discharge Disposition: Home or Self Care Attending Physician: Jean-Paul Hi MD Admitting Physician: Jean-Paul Hi MD Vital Signs 1 2 3 Most recent to oldest [Reference Range]: 187.96 cm (11/18/18 2:36 PM) Height 97.8 DegF (11/19/18 11:23 AM) 98.2 DegF (11/19/18 7:43 AM) 98.3 DegF (11/19/18 3:23 AM) Temperature Oral [96.4-99.1 DegF] 127/63 mmHg (11/19/18 11:23 AM) 137/68 mmHg (11/19/18 7:43 AM) 119/57 mmHg (11/19/18 3:23 AM) Blood Pressure [90-140/60-90 mmHg] 17 BRMIN (11/19/18 11:23 AM) 18 BRMIN (11/19/18 7:43 AM) 17 BRMIN (11/19/18 3:23 AM) Respiratory Rate [14-20 BRMIN] 57 bpm *LOW* (11/19/18 11:23 AM) 56 bpm *LOW* (11/19/18 7:43 AM) 65 bpm (11/19/18 3:23 AM) Peripheral Pulse Rate [60-100 bpm] 95.455 kg (11/18/18 2:36 PM) Weight 27.02 m2 (11/18/18 2:36 PM) Body Mass Index Problem List Condition Effective Dates Status Health Status Informant Acid Active reflux(Confirmed) Chronic Active pain(Confirmed)1 Diabetes(Confirmed) Active Goiter(Confirmed) Active [place] (hard of Active hearing)(Confirmed) Hypertension(Confirm Active ed) Irregular Active heartbeat(Confirmed) 2 Neuropathy(Confirmed Active )3 1back 2on Labetalol 3bilateral upper and lower extremities Allergies, Adverse Reactions, Alerts Substance Reaction Severity Status Motrin Active Medications acetaminophen 650 mg, 2 tab, Route: PO, Drug form: TAB, Q6H, Dosing Weight 95.455, kg, PRN For Temp > 100.4 F, Start date: 11/18/18 19:27:00 [employer], Duration: 30 day, Stop date: 12/18/18 19:26:00 CDT Notes: Do not exceed 4 gm/day. (Same as: Tylenol) Start Date: 11/18/18 Stop Date: 11/19/18 Status: Discontinued acetaminophen-oxyCODONE 325 mg-7.5 mg oral tablet, extended release 1 tab, PO, PRN, 0 Refill(s) Start Date: 11/19/18 Status: Ordered bisacodyl 10 mg, 1 supp, Route: CO, Drug form: SUPP, Daily, Dosing Weight 95.455, kg, PRN Constipation, Start date: 11/18/18 19:27:00 [employer]IDENT, Duration: 30 day, Stop date: 19:26:00 CDT Notes: (Same As: Dulcolax, Bisco-Lax) Start Date: 11/18/18 Stop Date: 11/19/18 Status: Discontinued Dextrose 50% Syringe 25 gm, 50 mL, Route: IVP, Drug Form: INJ, Dosing Weight 95.455, kg, PRN, PRN Blo od Glucose Results, Start date: 11/18/18 19:27:00 [employer]IDENT, Duration: 30 day, Stop da te: 12/18/18 20:26:00 CDT Start Date: 11/18/18 Stop Date: 11/19/18 Status: Discontinued Dextrose 50% Syringe 12.5 gm, 25 mL, Route: IVP, Drug Form: INJ, Dosing Weight 95.455, kg, PRN, PRN B lood Glucose Results, Start date: 11/18/18 19:27:00 [employer]ICE [employer]IDENT, Duration: 30 day, Stop date: 12/18/18 20:26:00 CDT Start Date: 11/18/18 Stop Date: 11/19/18 Status: Discontinued diphenhydrAMINE 25 mg, 1 tab, Route: PO, Drug form: TAB, Q6H, Dosing Weight 95.455, kg, PRN as n eeded for allergy symptoms, Start date: 11/18/18 19:27:00 [employer]IDENT, Duration: 30 day, Stop date: 12/18/18 19:26:00 CDT Start Date: 11/18/18 Stop Date: 11/19/18 Status: Discontinued docusate 100 mg, 1 cap, Route: PO, Drug form: CAP, BID, Dosing Weight 95.455, kg, PRN as needed for constipation, Start date: 11/18/18 19:27:00 [employer]ICE PRESIDENT, Duration: [address] day, St op date: 12/18/18 19:26:00 CDT Notes: (Same as: Colace) (Do Not Crush) Start Date: 11/18/18 Stop Date: 11/19/18 Status: Discontinued glucagon 1 mg, Route: IM, Drug form: PDR/INJ, PRN, Dosing Weight 95.455, kg, PRN Blood Gl ucose Results, Start date: 11/18/18 19:27:00 [employer]IDENT, Duration: 30 day, Stop date: 0 12/18/18 20:26:00 CDT Start Date: 11/18/18 Stop Date: 11/19/18 Status: Discontinued hydrALAZINE 10 mg, 0.5 mL, Route: IVP, Drug form: INJ, Q4H, Dosing Weight 95.455, kg, PRN Hy pertension, Priority: Routine, Start date: 11/18/18 19:27:00 [employer]IDENT, Duration: 30 d ay, Stop date: 12/18/18 19:26:00 CDT Notes: (Same as: Apresoline)Push over 5 minutes Start Date: 11/18/18 Stop Date: 11/19/18 Status: Discontinued Lovenox 40 mg, 0.4 mL, Route: SUB-Q, Drug form: INJ, [id number], Dosing Weight 95.455, kg, Start date: 11/18/18 20:00:00 [employer]IDENT, Duration: 30 day, Stop date: 12/17/18 20:00: 00 CDT Notes: (Same as: Lovenox) Start Date: 11/18/18 Stop Date: 11/19/18 Status: Discontinued Maalox Advanced Regular Strength SUSP 30 mL, Route: PO, Drug Form: SUSP, Dosing Weight 95.455, kg, QID-After Meals, CO N as needed for indigestion, Routine, Start date: 11/18/18 19:27:00 [employer]ICE [employer]IDENT, Duratio n: 30 day, Stop date: 12/18/18 19:26:00 CDT Notes: (aluminum hydroxide-magnesium hyd-simethicone [phone]/5ml 30 ml ud S US) Start Date: 11/18/18 Stop Date: 11/19/18 Status: Discontinued melatonin 3 mg, 1 tab, Route: PO, Drug form: TAB, Bedtime, Dosing Weight 95.455, kg, PRN I nsomnia, Start date: 11/18/18 19:27:00 [employer]IDENT, Duration: 30 day, Stop date: 19:26:00 CDT Notes: (Same as: Melatonin) Start Date: 11/18/18 Stop Date: 11/19/18 Status: Discontinued morphine Sulfate 2 mg, 1 mL, Route: IVP, Drug form: SOLN, Q4H, Dosing Weight 95.455, kg, PRN Pain Score 7-10, Start date: 11/18/18 19:27:00 [employer]IDENT, Duration: 30 day, Stop date: 19:26:00 CDT Start Date: 11/18/18 Stop Date: 11/19/18 Status: Discontinued Mucinex 600 mg, 1 tab, Route: PO, Drug form: ERTAB, Q12H, Dosing Weight 95.455, kg, PRN Congestion, Start date: 11/18/18 19:27:00 [employer]IDENT, Duration: 30 day, Stop date: 12/05 01/23 19:26:00 CDT Notes: (Same as: Guaifenesin LA, Humibid LA, Mucinex)"Do Not Crush" Take medica tion with plenty of water. Start Date: 11/18/18 Stop Date: 11/19/18 Status: Discontinued nicotine 21 mg, 1 patch, Route: TOP, Drug form: ERFILM, Daily, Dosing Weight 95.455, kg, PRN as needed for smoking cessation, Start date: 11/18/18 19:27:00 [employer]IDENT, Duration : 30 day, Stop date: 12/18/18 19:26:00 CDT Notes: (Same as: Habitrol)"Remove old patch before application of new patch"WAST E: F/P - P Waste Black; E - P Waste Black Start Date: 11/18/18 Stop Date: 11/19/18 Status: Discontinued Reliance 5/325 oral tablet 1 tab, Route: PO, Drug Form: TAB, Dosing Weight 95.455, kg, Q6H, PRN Pain Score 1-3, Start date: 11/18/18 19:27:00 [employer]ICE PRESIDENT, Duration: 30 day, Stop date: 12/18/18 19 :26:00 CDT Notes: (Same as: Reliance 325/5) Do not exceed 4gm/day of acetaminophen. Start Date: 11/18/18 Stop Date: 11/19/18 Status: Discontinued NS 1,000 mL 1,000 mL, Rate: 75 ml/hr, Infuse over: 13.3 hr, Route: IV, Dosing Weight 95.455 kg, Total Volume: 1,000, Start date: 11/18/18 19:42:00 [employer]ICE PRESIDENT, Duration: [address] day, St op date: 12/18/18 19:41:00 CDT, 2.24, m2 Start Date: 11/18/18 Stop Date: 11/19/18 Status: Discontinued ondansetron 4 mg, 2 mL, Route: IVP, Drug form: INJ, Q6H, Dosing Weight 95.455, kg, PRN Nause a & Vomiting, Start date: 11/18/18 19:27:00 [employer]IDENT, Duration: 30 day, Stop date: 12/18/18 19:26:00 CDT Notes: (Same as: Zofran) MEDICATION WASTE Product Size: 4 mgProduct Was reginald: ___ mg Start Date: 11/18/18 Stop Date: 11/19/18 Status: Discontinued polyethylene glycol 3350 17 gm, 1 pkt, Route: PO, Drug form: PWDR, Daily, Dosing Weight 95.455, kg, PRN C onstipation, Start date: 11/18/18 19:27:00 [employer] VICE PRESIDENT, Duration: 30 day, Stop date: 19:26:00 CDT Notes: Dissolve in 8 oz of water or juice.(Same as: Miralax) Start Date: 11/18/18 Stop Date: 11/19/18 Status: Discontinued Protonix 40 mg, 1 tab, Route: PO, Drug form: ECTAB, Before Breakfast, Dosing Weight 95.45 5, kg, Start date: 11/19/18 7:30:00 [employer] VICE PRESIDENT, Duration: 30 day, Stop date: 12/18/18 7 :30:00 CDT Notes: Tablet should not be chewed or crushed.(Same as: Protonix) Start Date: 11/19/18 Stop Date: 11/19/18 Status: Discontinued Robitussin-AC oral syrup 10 ml, Route: PO, Drug Form: LIQ, Dosing Weight 95.455, kg, Q4H, PRN Cough/Conge stion, Start date: 11/18/18 19:27:00 [employer]ICE PRESIDENT, Duration: 30 day, Stop date: 12/18/18 19:26:00 CDT Notes: (Same As: Robitussin AC) Start Date: 11/18/18 Stop Date: 11/19/18 Status: Discontinued Saline Flush 0.9% 10 mL, Route: IVP, Drug Form: INJ, Dosing Weight 95.455, kg, PRN, PRN Line Flush , Start date: 11/18/18 14:40:00 [employer] VICE PRESIDENT, Duration: 30 day, Stop date: 12/18/18 15:39 :00 CDT Notes: (Same as: BD Posiflush) Start Date: 11/18/18 Stop Date: 11/19/18 Status: Discontinued SEROquel 25 mg, 1 tab, Route: PO, Drug form: TAB, BID, Dosing Weight 95.455, kg, PRN Agit ation, Start date: 11/18/18 19:27:00 [employer] VICE PRESIDENT, Duration: 30 day, Stop date: 12/18/18 19:26:00 CDT Notes: (Same as: SEROquel) Start Date: 11/18/18 Stop Date: 11/19/18 Status: Discontinued simethicone 80 mg, 1 tab, Route: CHEW, Drug form: CHEWTAB, QID-After Meals, Dosing Weight 95 .455, kg, PRN as needed for gas, Start date: 11/18/18 19:27:00 [employer] VICE PRESIDENT, Duration: 30 day, Stop date: 12/18/18 19:26:00 CDT Notes: (Same as: Mylj) Start Date: 11/18/18 Stop Date: 11/19/18 Status: Discontinued Tessalon Perles 100 mg, 1 cap, Route: PO, Drug form: CAP, TID, Dosing Weight 95.455, kg, PRN Cou gh, Start date: 11/18/18 19:27:00 [employer] VICE PRESIDENT, Duration: 30 day, Stop date: 12/18/18 19: 26:00 CDT Notes: (Same As: Tessalon Perles)"Do Not Crush" Start Date: 11/18/18 Stop Date: 11/19/18 Status: Discontinued trazodone 50 mg, 1 tab, Route: PO, Drug form: TAB, Bedtime, Dosing Weight 95.455, kg, PRN Insomnia, Start date: 11/18/18 19:27:00 [employer] VICE PRESIDENT, Duration: 30 day, Stop date: 19:26:00 CDT Notes: (Same As: Desyrel) Start Date: 11/18/18 Stop Date: 11/19/18 Status: Discontinued Results ELECTROLYTES Most recent to 1 2 oldest [Reference Range]: Sodium Lvl [135-145 144 mEq/L 140 mEq/L mEq/L] (11/19/18 3:26 AM) (11/18/18 2:52 PM) Potassium Lvl 3.2 mEq/L 3.7 mEq/L [3.5-5.1 mEq/L] *LOW* (11/18/18 2:52 PM) (11/19/18 3:26 AM) Chloride Lvl [95-109 109 mEq/L 106 mEq/L mEq/L] (11/19/18 3:26 AM) (11/18/18 2:52 PM) CO2 [24-32 mEq/L] 31 mEq/L 30 mEq/L (11/19/18 3:26 AM) (11/18/18 2:52 PM) AGAP [10.0-20.0 7.2 mEq/L 7.7 mEq/L mEq/L] *LOW* *LOW* (11/19/18 3:26 AM) (11/18/18 2:52 PM) CHEM PANEL Most recent to 1 2 oldest [Reference Range]: Creatinine Lvl 1.96 mg/dL 2.30 mg/dL [0.50-1.40 mg/dL] *HI* *HI* (11/19/18 3:26 AM) (11/18/18 2:52 PM) eGFR 37 mL/min/1.73m2 1 31 mL/min/1.73m2 2 *NA* *NA* (11/19/18 3:26 AM) (11/18/18 2:52 PM) BUN [7-22 mg/dL] 41 mg/dL 45 mg/dL *HI* *HI* (11/19/18 3:26 AM) (11/18/18 2:52 PM) B/C Ratio [6-25] 20 (11/18/18 2:52 PM) Glucose Lvl [70-99 153 mg/dL 230 mg/dL mg/dL] *HI* *HI* (11/19/18 3:26 AM) (11/18/18 2:52 PM) Total Protein 8.2 g/dL [6.4-8.4 g/dL] (11/18/18 2:52 PM) Albumin Lvl [3.5-5.0 3.9 g/dL g/dL] (11/18/18 2:52 PM) Globulin [2.7-4.2 4.3 g/dL g/dL] *HI* (11/18/18 2:52 PM) A/G Ratio [0.7-1.6] 0.9 (11/18/18 2:52 PM) Calcium Lvl 9.5 mg/dL 9.8 mg/dL [8.5-10.5 mg/dL] (11/19/18 3:26 AM) (11/18/18 2:52 PM) ALT [0-65 unit/L] 34 unit/L (11/18/18 2:52 PM) AST [0-37 unit/L] 20 unit/L (11/18/18 2:52 PM) Alk Phos [39-136 64 unit/L unit/L] (11/18/18 2:52 PM) Bili Total [0.2-1.3 0.2 mg/dL mg/dL] (11/18/18 2:52 PM) 1Result Comment: The eGFR is calculated using the [...] from the National Kidney Disease Education Program ( NKDEP) which additionally recommends that when the eGFR is used in patients with extremes of body mass index for purposes of drug dosing, the eGFR should be mul tiplied by the estimated BMI. 2Result Comment: The eGFR is calculated using the [...] from the National Kidney Disease Education Program ( NKDEP) which additionally recommends that when the eGFR is used in patients with extremes of body mass index for purposes of drug dosing, the eGFR should be mul tiplied by the estimated BMI. CARDIAC ENZYMES Most recent to 2 oldest [Reference Range]: Total CK [12-191 523 unit/L unit/L] *HI* (11/18/18 2:52 PM) Troponin-I <0.02 ng/mL [0.00-0.40 ng/mL] (11/18/18 2:52 PM) BNP [<=100 pg/mL] 4 pg/mL (11/18/18 2:52 PM) LIPIDS Most recent to 1 2 oldest [Reference Range]: CHD Risk [4.00-7.30] 2.78 *LOW* (11/19/18 3:26 AM) Chol [<=199 mg/dL] 139 mg/dL (11/19/18 3:26 AM) Trig [<=149 mg/dL] 72 mg/dL (11/19/18 3:26 AM) HDL [>=61 mg/dL] 50 mg/dL *LOW* (11/19/18 3:26 AM) LDL (Calculated) 75 mg/dL [<=99 mg/dL] (11/19/18 3:26 AM) VLDL 14 *NA* (11/19/18 3:26 AM) SPECIAL CHEMISTRY Most recent to 1 2 oldest [Reference Range]: Hgb A1C [<=5.6 %] 6.9 % *HI* (11/19/18 3:26 AM) ANEMIA STUDY Most recent to 1 2 oldest [Reference Range]: Vitamin B12 Lvl >2000 pg/mL [254-1320 pg/mL] *HI* (11/19/18 3:26 AM) URINE AND STOOL Most recent to 1 2 oldest [Reference Range]: UA Turbidity [Clear] Slight *ABN* (11/18/18 5:36 PM) UA Color [Yellow] Yellow *NA* (11/18/18 5:36 PM) UA pH [5.0-8.0] 5.0 (11/18/18 5:36 PM) UA Spec Grav 1.020 [<=1.030] (11/18/18 5:36 PM) UA Glucose Negative [Negative] *NA* (11/18/18 5:36 PM) UA Blood [Negative] Negative (11/18/18 5:36 PM) UA Ketones Negative [Negative] *NA* (11/18/18 5:36 PM) UA Protein Negative [Negative] (11/18/18 5:36 PM) UA Urobilinogen <=1.0 mg/dL [0.1-1.0 mg/dL] *NA* (11/18/18 5:36 PM) UA Bili [Negative] Negative *NA* (11/18/18 5:36 PM) UA Leuk Est Small [Negative] *ABN* (11/18/18 5:36 PM) UA Nitrite Negative [Negative] (11/18/18 5:36 PM) UA WBC [0-5 /HPF] 10 /HPF *HI* (11/18/18 5:36 PM) UA RBC [0-2 /HPF] 2 /HPF (11/18/18 5:36 PM) UA Bacteria [None Occasional /HPF Seen /HPF] *NA* (11/18/18 5:36 PM) UA Sq Epi [Few /LPF] Few /LPF *NA* (11/18/18 5:36 PM) UA Hyal Cast [0-2 3 /LPF /LPF] *HI* (11/18/18 5:36 PM) UA Mucus [None Seen Few /LPF /LPF] *NA* (11/18/18 5:36 PM) HEMATOLOGY Most recent to 1 2 oldest [Reference Range]: WBC [3.7-10.4 K/CMM] 5.4 K/CMM 5.6 K/CMM (11/19/18 3:26 AM) (11/18/18 2:52 PM) RBC [4.70-6.10 3.96 M/CMM 4.26 M/CMM M/CMM] *LOW* *LOW* (11/19/18 3:26 AM) (11/18/18 2:52 PM) Hgb [14.0-18.0 g/dL] 12.4 g/dL 13.2 g/dL *LOW* *LOW* (11/19/18 3:26 AM) (11/18/18 2:52 PM) Hct [42.0-54.0 %] 37.4 % 39.9 % *LOW* *LOW* (11/19/18 3:26 AM) (11/18/18 2:52 PM) MCV [80.0-94.0 fL] 94.4 fL 93.7 fL *HI* (11/18/18 2:52 PM) (11/19/18 3:26 AM) MCH [27.0-31.0 pg] 31.2 pg 30.9 pg *HI* (11/18/18 2:52 PM) (11/19/18 3:26 AM) MCHC [32.0-36.0 33.1 g/dL 33.0 g/dL g/dL] (11/19/18 3:26 AM) (11/18/18 2:52 PM) RDW [11.5-14.5 %] 15.9 % 15.8 % *HI* *HI* (11/19/18 3:26 AM) (11/18/18 2:52 PM) MPV [7.4-10.4 fL] 8.5 fL 7.9 fL (11/19/18 3:26 AM) (11/18/18 2:52 PM) Platelet [133-450 194 K/CMM 210 K/CMM K/CMM] (11/19/18 3:26 AM) (11/18/18 2:52 PM) Segs [45.0-75.0 %] 69.9 % (11/18/18 2:52 PM) Lymphocytes 16.3 % [20.0-40.0 %] *LOW* (11/18/18 2:52 PM) Monocytes [2.0-12.0 10.7 % %] (11/18/18 2:52 PM) Eosinophils [0.0-4.0 2.6 % %] (11/18/18 2:52 PM) Basophils [0.0-1.0 0.5 % %] (11/18/18 2:52 PM) Neutrophils # 3.9 K/CMM [1.5-8.1 K/CMM] (11/18/18 2:52 PM) Lymphocytes # 0.9 K/CMM [1.0-5.5 K/CMM] *LOW* (11/18/18 2:52 PM) Monocytes # [0.0-0.8 0.6 K/CMM K/CMM] (11/18/18 2:52 PM) Eosinophils # 0.1 K/CMM [0.0-0.5 K/CMM] (11/18/18 2:52 PM) Immunizations Not Given Vaccine Date Status Refusal Reason pneumococcal 23-valent vaccine1 06/23/15 Not Given Patient Refuses 1Result Note: do not want it and will follow up with his PCP Procedures Procedure Date Related Diagnosis Body Site Status Repair of inguinal hernia1 Completed 1x2 Social History Social History Type Response Alcohol Previous treatment: None. Smoking Status Never smoker; Ready to change: No; Concerns about tobacco use in household: No; Exposure to Tobacco Smoke None; Cigarette Smoking Last 365 Days No; Reg Smoking Cessation Counseling No entered on: 2/12/19 Assessment and Plan Extracted from: Title: Discharge Summary * Author: Jean-Paul Hi MD Date: 11/19/18 Discharge Information Disposition to home Condition: Stable exam medications: See med reconciliation form Diet: Heart healthy Discharge Plan In the event of any worsening symptoms patient advised to come back to the ED for further evaluation Discharge summary to greater than 35 minutes Extracted from: Title: General Admission H&P * Author: Jean-Paul Hi MD Date: 11/18/18 Impression and Plan 1. Metabolic encephalopathy now back to normal baseline 2. Lower extremity weakness 3. Chronic back pain on pain control 4. Acute on chronic CKD stage III 4 5. Hypertension Plan: Get MRI of the brain, CT brain: Negative, neurology consultation, TSH, vitamin B12 Resume pain control medications IV fluids, a.m. labs Resume same antihypertensive medications PT/OT eval Lovenox for DVT prophylaxis
--- OUTSIDE RECORDS SUMMARY | 2019-05-04 12:29 | XMS REPORT | Summary of Care ---
Author Author [facility] Organization [facility] Address Unknown Phone Unavailable Encounter HQ Jim(EZIO) [id number] Date(s): 06/22/15 - 06/23/[address] [facility] [address] [place] [address]- Discharge Disposition: Home Attending Physician: Elsa Sampson MD Referring Physician: Elsa Sampson MD Vital Signs 1 2 3 Most recent to oldest [Reference Range]: 208.28 cm (06/22/15 3:24 PM) 187.96 cm (06/17/15 10:49 AM) Height 1 2 3 Most recent to oldest [Reference Range]: 98.6 DegF (06/23/15 8:18 AM) 98.4 DegF (06/23/15 4:22 AM) 98.7 DegF (06/23/15 12:26 AM) Temperature Oral [96.4-99.1 DegF] 1 2 3 Most recent to oldest [Reference Range]: 195/78 mmHg *HI* (06/23/15 8:18 AM) 147/65 mmHg *HI* (06/23/15 4:22 AM) 139/61 mmHg (06/23/15 12:26 AM) Blood Pressure [90-140/60-90 mmHg] 1 2 3 Most recent to oldest [Reference Range]: 20 BRMIN (06/23/15 8:18 AM) 16 BRMIN (06/23/15 4:22 AM) 14 BRMIN (06/23/15 12:26 AM) Respiratory Rate [14-20 BRMIN] 1 2 3 Most recent to oldest [Reference Range]: 60 bpm (06/23/15 8:18 AM) 58 bpm *LOW* (06/23/15 4:22 AM) 64 bpm (06/23/15 12:26 AM) Peripheral Pulse Rate [60-100 bpm] 1 2 3 Most recent to oldest [Reference Range]: 95.455 kg (06/22/15 3:24 PM) 88.636 kg (06/17/15 10:49 AM) Weight 1 2 3 Most recent to oldest [Reference Range]: 22 m2 (06/22/15 3:24 PM) 25.09 m2 (06/17/15 10:49 AM) Body Mass Index Problem List Condition Effective Dates Status Health Status Informant Acid Active reflux(Confirmed) Chronic Active pain(Confirmed)1 Dentures(Confirmed)2 Active Diabetes(Confirmed) Active Goiter(Confirmed) Active [place] (hard of Active hearing)(Confirmed) Hypertension(Confirm Active ed) Irregular Active heartbeat(Confirmed) 3 Neuropathy(Confirmed Active )4 1back 2upper 3on Labetalol 4bilateral upper and lower extremities Allergies, Adverse Reactions, Alerts Substance Reaction Severity Status Motrin Active Medications acetaminophen-hydrocodone 325 mg-5 mg oral tablet 1 tab, Route: PO, Drug Form: TAB, Dosing Weight 88.636, kg, Q4H, PRN Pain Score 1-3, Start date: 06/22/15 11:04:00, Duration: 30 day, Stop date: 07/22/15 11:03: 00 Notes: (Same as: [place] 325/5) Do not exceed 4gm/day of acetaminophen. Start Date: 06/22/15 Stop Date: 06/23/15 Status: Discontinued acetaminophen-hydrocodone 325 mg-5 mg oral tablet 2 tab, Route: PO, Drug Form: TAB, Dosing Weight 88.636, kg, Q4H, PRN Pain Score 4-6, Start date: 06/22/15 11:04:00, Duration: 30 day, Stop date: 07/22/15 11:03: 00 Notes: (Same as: [place] 325/5) Do not exceed 4gm/day of acetaminophen. Start Date: 06/22/15 Stop Date: 06/23/15 Status: Discontinued amLODIPine 5 mg, 1 tab, Route: PO, Drug form: TAB, Bedtime, Dosing Weight 88.636, kg, Start date: 06/22/15 21:00:00, Duration: 30 day, Stop date: 07/21/15 21:00:00 Notes: (Same as: Norvasc) Start Date: 06/22/15 Stop Date: 06/23/15 Status: Discontinued amLODIPine 5 mg oral tablet 5 mg=1 tab, PO, Bedtime, # 30 tab, 0 Refill(s) Start Date: 06/17/15 Status: Ordered ceFAZolin 2 gm, Route: IVPB, ONCALL, Dosing Weight 88.636, kg, Start date: 06/22/15 7:00:0 0, Duration: 30 day, Stop date: 07/22/15 6:59:00 Start Date: 06/22/15 Stop Date: 06/22/15 Status: Completed dexamethasone 8 mg, Route: IV, ONCALL, Dosing Weight 88.636, kg, Start date: 06/22/15 7:00:00, Duration: 30 day, Stop date: 07/22/15 6:59:00 Start Date: 06/22/15 Stop Date: 06/22/15 Status: Completed Dextrose 50% in Water IV 25 mL, Route: IVP, Start date: 06/22/15 15:54:00, Stop date: 07/22/15 15:53:00, PRN Blood Glucose Results Start Date: 06/22/15 Stop Date: 06/23/15 Status: Discontinued Dextrose 50% in Water IV 50 mL, Route: IVP, Start date: 06/22/15 15:55:00, Duration: 30 day, Stop date: 15:54:00, PRN Blood Glucose Results Start Date: 06/22/15 Stop Date: 06/23/15 Status: Discontinued diphenhydrAMINE 25 mg, 1 tab, Route: PO, Drug form: TAB, Bedtime, Dosing Weight 88.636, kg, PRN Insomnia, Start date: 06/22/15 11:04:00, Duration: 30 day, Stop date: 07/22/15 1 1:03:00 Start Date: 06/22/15 Stop Date: 06/23/15 Status: Discontinued dorzolamide ophthalmic 1 drp, BOTH EYES, TID, 0 Refill(s) Start Date: 06/17/15 Status: Ordered dorzolamide ophthalmic 1 drp, Route: BOTH EYES, TID, Drug form: SOLN, Start date: 06/22/15 13:00:00, Du ration: 30 day, Stop date: 07/22/15 9:00:00 Notes: Same as: Trusopt Non-Formulary Drug Start Date: 06/22/15 Stop Date: 06/23/15 Status: Discontinued fentaNYL 50 microgram, Route: IVP, Q5Min, Dosing Weight 88.636, kg, PRN Pain Score 7-10, Start date: 06/22/15 11:03:00, Duration: 2 doses or times, Stop date: Limited # of times Start Date: 06/22/15 Stop Date: 06/22/15 Status: Discontinued flumazenil 0.2 mg, Route: IVP, PRN, Dosing Weight 88.636, kg, PRN Benzodiazepine Reversal, Initial dose, Start date: 06/22/15 11:03:00, Duration: 30 day, Stop date: 11:02:00 Start Date: 06/22/15 Stop Date: 06/22/15 Status: Discontinued furosemide 80 mg, 2 tab, Route: PO, Drug form: TAB, Daily, Dosing Weight 88.636, kg, Start date: 06/23/15 9:00:00, Duration: 30 day, Stop date: 07/22/15 9:00:00 Notes: (Same as: Lasix) May cause GI upset. Give with food or milk. Start Date: 06/23/15 Stop Date: 06/23/15 Status: Discontinued furosemide 80 mg oral tablet 80 mg=1 tab, PO, Daily, # 30 tab, 0 Refill(s) Start Date: 06/17/15 Status: Ordered gabapentin 400 mg oral capsule 400 mg=1 cap, PO, TID, # 90 cap, 1 Refill(s) Start Date: 06/17/15 Status: Ordered gabapentin 400 mg oral capsule 400 mg, 1 cap, Route: PO, Drug form: CAP, TID, Dosing Weight 88.636, kg, Start d ate: 06/22/15 13:00:00, Duration: 30 day, Stop date: 07/22/15 9:00:00 Notes: (Same as: Neurontin) Start Date: 06/22/15 Stop Date: 06/23/15 Status: Discontinued glimepiride 1 mg, 1 tab, Route: PO, Drug form: TAB, BID, Dosing Weight 88.636, kg, Start micaela e: 06/22/15 17:00:00, Duration: 30 day, Stop date: 07/22/15 9:00:00 Notes: (Same as: Amaryl) Start Date: 06/22/15 Stop Date: 06/23/15 Status: Discontinued glimepiride 1 mg oral tablet 1 mg=1 tab, PO, BID, # 30 tab, 0 Refill(s) Start Date: 06/17/15 Status: Ordered glucagon 1 mg, Route: IM, Drug form: PDR/INJ, PRN, PRN Blood Glucose Results, Start date: 06/22/15 15:56:00, Duration: 30 day, Stop date: 07/22/15 15:55:00 Start Date: 06/22/15 Stop Date: 06/23/15 Status: Discontinued hydromorphone 0.5 mg, Route: IVP, Q5Min, Dosing Weight 88.636, kg, PRN Pain Score 7-10, Start date: 06/22/15 11:03:00, Duration: 4 doses or times, Stop date: Limited # of celia es Start Date: 06/22/15 Stop Date: 06/22/15 Status: Discontinued hydromorphone 4 mg oral tablet 4 mg=1 tab, PO, Bedtime, PRN Pain, Back Pain, 0 Refill(s) Special Instructions: Back Pain Start Date: 06/17/15 Stop Date: 06/24/15 Status: Ordered insulin aspart 4 unit, 0.04 mL, Route: SUB-Q, Drug form: SOLN, TID-Before Meals, Dosing Weight 88.636, kg, PRN Blood Glucose Results, Start date: 06/22/15 11:04:00, Duration: 30 day, Stop date: 07/22/15 11:03:00 Notes: Roll in palms of hands gently; Do not shake vigorously. (Same as: Arianna Meyer)"single patient use only" Stable for 28 days at room temperature.Expires in _ ____ days from Date Start Date: 06/22/15 Stop Date: 06/23/15 Status: Discontinued insulin aspart 5 unit, 0.05 mL, Route: SUB-Q, Drug form: SOLN, TID-Before Meals, Dosing Weight 88.636, kg, PRN Blood Glucose Results, Start date: 06/22/15 11:04:00, Duration: 30 day, Stop date: 07/22/15 11:03:00 Notes: Roll in palms of hands gently; Do not shake vigorously. (Same as: NovoLO G)"single patient use only" Stable for 28 days at room temperature.Expires in _ ____ days from Date Start Date: 06/22/15 Stop Date: 06/23/15 Status: Discontinued insulin aspart 4 unit, 0.04 mL, Route: SUB-Q, Drug form: SOLN, Bedtime, Dosing Weight 88.636, k g, PRN Blood Glucose Results, Start date: 06/22/15 11:04:00, Duration: 30 day, S top date: 07/22/15 11:03:00 Notes: Roll in palms of hands gently; Do not shake vigorously. (Same as: NovoLO G)"single patient use only" Stable for 28 days at room temperature.Expires in _ ____ days from Date Start Date: 06/22/15 Stop Date: 06/23/15 Status: Discontinued insulin aspart 1 unit, 0.01 mL, Route: SUB-Q, Drug form: SOLN, Bedtime, Dosing Weight 88.636, k g, PRN Blood Glucose Results, Start date: 06/22/15 11:04:00, Duration: 30 day, S top date: 07/22/15 11:03:00 Notes: Roll in palms of hands gently; Do not shake vigorously. (Same as: NovoLO G)"single patient use only" Stable for 28 days at room temperature.Expires in _ ____ days from Date Start Date: 06/22/15 Stop Date: 06/23/15 Status: Discontinued insulin aspart 3 unit, 0.03 mL, Route: SUB-Q, Drug form: SOLN, Bedtime, Dosing Weight 88.636, k g, PRN Blood Glucose Results, Start date: 06/22/15 11:04:00, Duration: 30 day, S top date: 07/22/15 11:03:00 Notes: Roll in palms of hands gently; Do not shake vigorously. (Same as: NovoLO G)"single patient use only" Stable for 28 days at room temperature.Expires in _ ____ days from Date Start Date: 06/22/15 Stop Date: 06/23/15 Status: Discontinued insulin aspart 2 unit, 0.02 mL, Route: SUB-Q, Drug form: SOLN, Bedtime, Dosing Weight 88.636, k g, PRN Blood Glucose Results, Start date: 06/22/15 11:04:00, Duration: 30 day, S top date: 07/22/15 11:03:00 Notes: Roll in palms of hands gently; Do not shake vigorously. (Same as: NovoLO G)"single patient use only" Stable for 28 days at room temperature.Expires in _ ____ days from Date Start Date: 06/22/15 Stop Date: 06/23/15 Status: Discontinued insulin aspart 3 unit, 0.03 mL, Route: SUB-Q, Drug form: SOLN, TID-Before Meals, Dosing Weight 88.636, kg, PRN Blood Glucose Results, Start date: 06/22/15 11:04:00, Duration: 30 day, Stop date: 07/22/15 11:03:00 Notes: Roll in palms of hands gently; Do not shake vigorously. (Same as: NovoLO G)"single patient use only" Stable for 28 days at room temperature.Expires in _ ____ days from Date Start Date: 06/22/15 Stop Date: 06/23/15 Status: Discontinued insulin aspart 2 unit, 0.02 mL, Route: SUB-Q, Drug form: SOLN, TID-Before Meals, Dosing Weight 88.636, kg, PRN Blood Glucose Results, Start date: 06/22/15 11:04:00, Duration: 30 day, Stop date: 07/22/15 11:03:00 Notes: Roll in palms of hands gently; Do not shake vigorously. (Same as: NovoLO G)"single patient use only" Stable for 28 days at room temperature.Expires in _ ____ days from Date Start Date: 06/22/15 Stop Date: 06/23/15 Status: Discontinued insulin aspart 1 unit, 0.01 mL, Route: SUB-Q, Drug form: SOLN, TID-Before Meals, Dosing Weight 88.636, kg, PRN Blood Glucose Results, Start date: 06/22/15 11:04:00, Duration: 30 day, Stop date: 07/22/15 11:03:00 Notes: Roll in palms of hands gently; Do not shake vigorously. (Same as: NovoLO G)"single patient use only" Stable for 28 days at room temperature.Expires in _ ____ days from Date Start Date: 06/22/15 Stop Date: 06/23/15 Status: Discontinued labetalol 300 mg, 3 tab, Route: PO, Drug form: TAB, Daily, Dosing Weight 88.636, kg, Start date: 06/23/15 9:00:00, Duration: 30 day, Stop date: 07/22/15 9:00:00 Notes: With food. (Same as:Trandate, Normodyne) Start Date: 06/23/15 Stop Date: 06/23/15 Status: Discontinued labetalol 300 mg oral tablet 300 mg=1 tab, PO, Daily, # 180 tab, 0 Refill(s) Start Date: 06/17/15 Status: Ordered Lactated Ringers Injection IV 1,000 mL 1,000 mL, Rate: 75 ml/hr, Infuse over: 13.3 hr, Route: IV, Dosing Weight 88.636 kg, Total Volume: 1,000, Start date: 06/22/15 11:04:00, Duration: 30 day, Stop d ate: 07/22/15 11:03:00 Start Date: 06/22/15 Stop Date: 06/23/15 Status: Discontinued Lactated Ringers Injection IV 1000 mL 1,000 mL, Rate: 25 ml/hr, Infuse over: 40 hr, Route: IV, Dosing Weight 88.636 kg , Total Volume: 1,000, Start date: 06/22/15 7:27:00, Duration: 30 day, Stop date : 07/22/15 7:26:00 Start Date: 06/22/15 Stop Date: 06/22/15 Status: Discontinued latanoprost ophthalmic 1 drp, Route: BOTH EYES, Bedtime, Drug form: SOLN, Start date: 06/22/15 21:00:00 , Duration: 30 day, Stop date: 07/21/15 21:00:00 Notes: Keep refrigerated. (Same as:Xalatan) Start Date: 06/22/15 Stop Date: 06/23/15 Status: Discontinued latanoprost ophthalmic 1 drp, BOTH EYES, Bedtime, 0 Refill(s) Start Date: 06/17/15 Status: Ordered lisinopril 40 mg, 2 tab, Route: PO, Drug form: TAB, Daily, Dosing Weight 88.636, kg, Start date: 06/23/15 9:00:00, Duration: 30 day, Stop date: 07/22/15 9:00:00 Notes: (Same as: Prinivil, Zestril) Start Date: 06/23/15 Stop Date: 06/23/15 Status: Discontinued lisinopril 40 mg oral tablet 40 mg=1 tab, PO, Daily, # 30 tab, 0 Refill(s) Start Date: 06/17/15 Status: Ordered methimazole 10 mg, 1 tab, Route: PO, Drug form: TAB, Every Other Day, Dosing Weight 88.636, kg, Start date: 06/23/15 9:00:00, Duration: 30 day, Stop date: 07/21/15 9:00:00 Start Date: 06/23/15 Stop Date: 06/23/15 Status: Discontinued methimazole 10 mg oral tablet See Instructions, 1 tab every other day, 3 Refill(s) Special Instructions: 1 tab every other day Start Date: 06/17/15 Stop Date: 06/23/15 Status: Discontinued morphine Sulfate 2 mg, 1 mL, Route: IVP, Drug form: INJ, Q3H, Dosing Weight 88.636, kg, PRN Pain Score 1-3, Start date: 06/22/15 11:04:00, Duration: 30 day, Stop date: 07/22/15 11:03:00 Notes: (Same as:MORPhine Sulfate) Start Date: 06/22/15 Stop Date: 06/23/15 Status: Discontinued naloxone 0.04 mg, Route: IVP, Q2MIN, Dosing Weight 88.636, kg, PRN Narcotic Reversal, Sta rt date: 06/22/15 11:03:00, Duration: 8 doses or times, Stop date: Limited # of times Start Date: 06/22/15 Stop Date: 06/22/15 Status: Discontinued [place] 10/325 oral tablet 1 tab, PO, TID, PRN Pain, # 60 tab, 0 Refill(s) Start Date: 06/17/15 Stop Date: 07/07/15 Status: Ordered [place] 10/325 oral tablet 1 tab, Route: PO, Drug Form: TAB, Dosing Weight 88.636, kg, Q6H, PRN Pain, Start date: 06/22/15 11:03:00, Duration: 30 day, Stop date: 07/22/15 11:02:00 Start Date: 06/22/15 Stop Date: 06/22/15 Status: Discontinued Ofirmev 1,000 mg, Route: IV, Drug form: INJ, ONCE, Dosing Weight 88.636, kg, PRN Pain, f or > or=50 kg, Start date: 06/22/15 11:03:00 Start Date: 06/22/15 Stop Date: 06/22/15 Status: Discontinued ondansetron 4 mg, Route: IVP, ONCE, Dosing Weight 88.636, kg, PRN Nausea & Vomiting, Start date: 06/22/15 11:03:00 Start Date: 06/22/15 Stop Date: 06/22/15 Status: Completed ondansetron 4 mg, 2 mL, Route: IVP, Drug form: INJ, Q6H, Dosing Weight 88.636, kg, PRN Nause a & Vomiting, Start date: 06/22/15 11:04:00, Duration: 30 day, Stop date: 07/22/15 11:03:00 Notes: (Same as: Erin) MEDICATION WASTE Product Size: 4 mgProduct Was reginald: ___ mg Start Date: 06/22/15 Stop Date: 06/23/15 Status: Discontinued oxyCODONE 5 mg, Route: PO, Drug form: TAB, Q4H, Dosing Weight 88.636, kg, PRN Pain Score 4 -6, Start date: 06/22/15 11:03:00, Duration: 30 day, Stop date: 07/22/15 11:02:0 0 Start Date: 06/22/15 Stop Date: 06/22/15 Status: Discontinued oxyCODONE 10 mg, Route: PO, Drug form: TAB, Q4H, Dosing Weight 88.636, kg, PRN Pain Score 7-10, Start date: 06/22/15 11:03:00, Duration: 30 day, Stop date: 07/22/15 11:02 :00 Start Date: 06/22/15 Stop Date: 06/22/15 Status: Discontinued pneumococcal 23-valent vaccine 0.5 mL, Route: IM, Drug Form: INJ, Daily, Start date: 06/23/15 9:00:00, Duration : 1 doses or times, Stop date: 06/23/15 9:00:00 Notes: (Same as: Pneumovax 23) Refrigerate Start Date: 06/23/15 Stop Date: 06/23/15 Status: Completed pravastatin 20 mg, 1 tab, Route: PO, Drug form: TAB, Bedtime, Dosing Weight 88.636, kg, Star t date: 06/22/15 21:00:00, Duration: 30 day, Stop date: 07/21/15 21:00:00 Notes: (Same as: Pravachol) Start Date: 06/22/15 Stop Date: 06/23/15 Status: Discontinued pravastatin 20 mg oral tablet 20 mg=1 tab, PO, Bedtime, # 30 tab, 0 Refill(s) Start Date: 06/17/15 Status: Ordered Sodium Chloride 0.9% IV 1000 mL 1,000 mL, Rate: 25 ml/hr, Infuse over: 40 hr, Route: IV, Dosing Weight 88.636 kg , Total Volume: 1,000, Start date: 06/22/15 7:27:00, Duration: 30 day, Stop date : 07/22/15 7:26:00 Start Date: 06/22/15 Stop Date: 06/22/15 Status: Discontinued Results ELECTROLYTES 1 2 3 Most recent to oldest [Reference Range]: 138 mEq/L (06/17/15 11:37 AM) Sodium Lvl [135-145 mEq/L] 4.2 mEq/L (06/17/15 11:37 AM) Potassium Lvl [3.5-5.1 mEq/L] 105 mEq/L (06/17/15 11:37 AM) Chloride Lvl [95-109 mEq/L] 31 mEq/L (06/17/15 11:37 AM) CO2 [24-32 mEq/L] 6.2 mEq/L *LOW* (06/17/15 11:37 AM) AGAP [10.0-20.0 mEq/L] CHEM PANEL 1 2 3 Most recent to oldest [Reference Range]: 1.9 mg/dL *HI* (06/17/15 11:37 AM) Creatinine Lvl [0.5-1.4 mg/dL] 40 mL/min/1.73m2 1 *NA* (06/17/15 11:37 AM) eGFR 29 mg/dL *HI* (06/17/15 11:37 AM) BUN [7-22 mg/dL] 145 mg/dL *HI* (06/17/15 11:37 AM) Glucose Lvl [70-99 mg/dL] 9.2 mg/dL (06/23/15 3:24 AM) 9.3 mg/dL (06/22/15 7:40 PM) 9.4 mg/dL (06/22/15 3:53 PM) Calcium Lvl [8.5-10.5 mg/dL] 1Result Comment: The eGFR is calculated using [...] be mul tiplied by the estimated BMI. PARATHYROID PROFILE 1 2 3 Most recent to oldest [Reference Range]: 18.8 pg/mL (06/22/15 3:53 PM) 13.3 pg/mL (06/22/15 12:02 PM) PTH Intact [11.1-79.5 pg/mL] HEMATOLOGY 1 2 3 Most recent to oldest [Reference Range]: 5.2 K/CMM (06/17/15 11:37 AM) WBC [3.7-10.4 K/CMM] 4.35 M/CMM *LOW* (06/17/15 11:37 AM) RBC [4.70-6.10 M/CMM] 12.6 g/dL *LOW* (06/17/15 11:37 AM) Hgb [14.0-18.0 g/dL] 39.7 % *LOW* (06/17/15 11:37 AM) Hct [42.0-54.0 %] 91.4 fL (06/17/15 11:37 AM) MCV [80.0-94.0 fL] 29.1 pg (06/17/15 11:37 AM) MCH [27.0-31.0 pg] 31.8 g/dL *LOW* (06/17/15 11:37 AM) MCHC [32.0-36.0 g/dL] 15.3 % *HI* (06/17/15 11:37 AM) RDW [11.5-14.5 %] 121 K/CMM *LOW* (06/17/15 11:37 AM) Platelet [133-450 K/CMM] 9.3 fL (06/17/15 11:37 AM) MPV [7.4-10.4 fL] 61.4 % (06/17/15 11:37 AM) Segs [45.0-75.0 %] 24.0 % (06/17/15 11:37 AM) Lymphocytes [20.0-40.0 %] 8.9 % (06/17/15 11:37 AM) Monocytes [2.0-12.0 %] 5.1 % *HI* (06/17/15 11:37 AM) Eosinophils [0.0-4.0 %] 0.6 % (06/17/15 11:37 AM) Basophils [0.0-1.0 %] 3.2 K/CMM (06/17/15 11:37 AM) Segs-Bands # [1.5-8.1 K/CMM] 1.2 K/CMM (06/17/15 11:37 AM) Lymphocytes # [1.0-5.5 K/CMM] 0.5 K/CMM (06/17/15 11:37 AM) Monocytes # [0.0-0.8 K/CMM] 0.3 K/CMM (06/17/15 11:37 AM) Eosinophils # [0.0-0.5 K/CMM] 12.5 seconds (06/17/15 11:37 AM) PT [12.0-14.7 seconds] 0.90 (06/17/15 11:37 AM) INR [0.85-1.17] 29.2 seconds (06/17/15 11:37 AM) PTT [22.9-35.8 seconds] Immunizations Vaccine Date Refusal Reason pneumococcal 23-valent vaccine 06/23/15 Patient Refuses Procedures Procedure Date Related Diagnosis Body Site Repair of inguinal hernia1 1x2 Social History Social History Type Response Alcohol Previous treatment: None. Smoking Status Never smoker; Exposure to Tobacco Smoke None; Cigarette Smoking Last 365 Days No; Reg Smoking Cessation Counseling No Assessment and Plan Extracted from: Title: Clinical Document Author: Elsa Sampson MD Date: 06/23/15 Elsa Sampson MD ENT phone [phone] Discharge Summary: Hospital Course: over night stay [...] mg, 2 mL, IVP, Q6H, PRN: Nausea & Vomiting. pneumococcal 23-valent vaccine: 0.5 mL, IM, [...] ondansetron: 4 mg, IVP, ONCE, PRN: Nausea & Vomiting. ondansetron: 4 mg, 2 mL, PYXIS, [...] s/p total thyroidectomy. hx of hypercalcemia Extracted from: Title: Clinical Document Author: Elsa Sampson MD Date: 06/22/15 ENT Progress Note Elsa Sampson MD Attending: Elsa Sampson MDPhone: service: Ear Nose Throat Code status: None Specified=FULL CODE Reason for Admission: 240.9 242.90 Working DRG: None Documented Isolation: None Documented Consulting Physicians: (none on file) Allergies: Motrin Vitals and Temp: VitalsTmp(F)[id number] 06/22 13:45----[id number] 2.0L/m 06/22 13:[id number] 2.0L/m 06/22 13:15----[id number] 2.0L/m 06/22 13:00----[id number]--- 06/22 12:45----[id number]--- 24 Hr Tmax: 98.3F (36.83c) at 06/22 06:30Vital Signs are the last 5 in the past 48 hours. SUBJECTIVE: sleepy OBJECTIVE: c/o throat pain. no sob, voice intact. intact pth 13 ( wnl.) ca 10 ( wnl.) EXAM: incision intact no erythema/ hematoma antoinette drain sanguinous 30 cc ASSESSMENT: s/p total thyroidectomy PLAN & TREATMENT: 23 hour observation. antoinette drain. pain control. will observe calcium/ pth level. will cont methamozole for now due to previous hyperthryoid. DIAGNOSES & PROBLEMS: Active Problems (9) Acid reflux Chronic pain Dentures Diabetes Goiter [place] (hard of hearing) Hypertension Irregular heartbeat Neuropathy I/O Intake OutputBalance 06/22/20157a-3p 1500.00 50.00 1450.00As of 13:58 3p-11p 0.00 0.00 0.00 11p-7a 0.00 0.00 0.00 Totals 1500.00 50.00 1450.00 06/21/20157a-3p 0.00 0.00 0.00 3p-11p 0.00 0.00 0.00 11p-7a 0.00 0.00 0.00 Totals 0.00 0.00 0.00 06/20/20157a-3p 0.00 0.00 0.00 3p-11p 0.00 0.00 0.00 [...] insulin aspart 3 unit SUB-Q TID-Before Meals 09/16/15 insulin aspart 4 unit SUB-Q TID-Before Meals [...] 75 ml/hr 24hr Labs 06/22 1202 Calcium Lvl10.0 PTH [id number] 06/22 0620 Glucose [id number] H
[2019-05-04] MEDS ORDERED: LEVOTHYROXINE100 MC1 PO (13:18)
[2019-05-04] MEDS ORDERED: LEXAPRO10 MG PO (13:18)
[2019-05-04] MEDS ORDERED: LOSARTAN POTAS100 MG PO (13:18)
[2019-05-04] MEDS ORDERED: LISINOPRIL2.5 MG PO (13:18)
[2019-05-04] MEDS ORDERED: HYDROCHLOROTHIA25 MG PO (13:18)
[2019-05-04] MEDS ORDERED: JANUVIA100 MG PO (13:18)
[2019-05-04] MEDS ORDERED: MUPIROCIN22 GM TOP (13:18)
[2019-05-04] MEDS ORDERED: LABETALOL HCL100 MG PO (13:18)
[2019-05-04] MEDS ORDERED: LATANOPROST2.5 ML OP (13:18)
[2019-05-04] MEDS ORDERED: DORZOLAMIDE HCL10 ML OP (13:18)
[2019-05-04] MEDS ORDERED: FUROSEMIDE40 MG PO (13:18)
[2019-05-04] MEDS ORDERED: VITAMIN B-121000 MCG PO (13:18)
[2019-05-04] MEDS ORDERED: VITAMIN D1000 UNI1 PO (13:18)
[2019-05-04] MEDS ORDERED: LEVOTHYROXINE50 MCG PO (13:24)
--- NOTE | 2019-05-04 13:50 | NUR ---
Recvd patient as a direct admit. HC3u5-7, Confused, family at bed side, bed in lowest position, side rails up, bed alarm ON, call light in reach. Dr iH here for rounds
[2019-05-04] MEDS ORDERED: DEXTROSE 50% SYRINGE 50 ML IV PRN (14:00)
[2019-05-04 14:09] LABS: BASOPHILS # (AUTO) 0.1 (0.0-0.1); BASOPHILS % 0.6 % (0.0-1.0); EOSINOPHILS # (AUTO) 2.4 (0.0-0.4); EOSINOPHILS % 25.1 % (0.0-6.0); HEMATOCRIT 28.2 % (38.2-49.6); HEMOGLOBIN 9.8 g/dL (14.0-18.0); LYMPHOCYTES # (AUTO) 1.2 (1.0-3.2); LYMPHOCYTES % 12.6 % (18.0-39.1); MEAN CORPUSCULAR HEMOGLOBIN 32.1 pg (28-32); MEAN CORPUSCULAR HGB CONC 34.8 g/dL (31-35); MEAN CORPUSCULAR VOLUME 92.5 fL (81-99); MONOCYTES # (AUTO) 0.7 (0.2-0.8); MONOCYTES % 7.2 % (4.4-11.3); NEUTROPHILS % 53.3 % (38.7-80.0); PLATELET COUNT 349 x10e3/uL (140-360); RED BLOOD COUNT 3.05 x10e6/uL (4.3-5.7); RED CELL DISTRIBUTION WIDTH 18.3 % (11.7-14.4)
[2019-05-04 14:32] LABS: ALBUMIN 3.1 g/dL (3.5-5.0); ALBUMIN/GLOBULIN RATIO 0.7 (0.8-2.0); ANION GAP 18.9 mmol/L (8-16); CALCIUM 9.4 mg/dL (8.4-10.2); CREATININE, SERUM 2.08 mg/dL (0.72-1.25); POTASSIUM 3.9 mmol/L (3.5-5.1)
[2019-05-04 15:18] VITALS: BP 135/65
--- NOTE | 2019-05-04 15:20 | Diagnostic Imaging Report ---
EXAMINATION: CHEST SINGLE (PORTABLE) INDICATION: Change in neurological status COMPARISON: None FINDINGS: TUBES and LINES: None. LUNGS: The lungs are well-inflated. No focal consolidation or pulmonary edema. Subcentimeter calcified granuloma in the right midlung zone versus superimposed scapular or rib bone island. PLEURA: No pleural effusion or pneumothorax. HEART AND MEDIASTINUM: The cardiomediastinal silhouette is normal in size and contour. BONES AND SOFT TISSUES: No acute fracture or dislocation. UPPER ABDOMEN: No free air under the diaphragm. IMPRESSION: No focal pneumonia or pulmonary edema. Signed by: Newton Sandy MD on 05/04/2019 3:16 PM
[2019-05-04 16:00] VITALS: BP 137/57
[2019-05-04 16:54] LABS: EOSINOPHILS % (MANUAL) 27 % (0-7); LYMPHOCYTES % (MANUAL) 20 % (19-48); METAMYELOCYTES % (MANUAL) 1 % (0-0); MONOCYTES % (MANUAL) 2 % (3.4-9.0); NEUTROPHILS % (MANUAL) 50 % (40-74)
[2019-05-04 16:55] LABS: ANISOCYTOSIS SLIGHT; HYPOCHROMASIA SLIGHT; PLATELET ESTIMATE ADEQUATE; PLATELET MORPHOLOGY COMMENT NORMAL; RBC MORPHOLOGY COMMENT NORMAL
[2019-05-04] MEDS: ENOXAPARIN SOD INJ 40 MG/0.4 ML SYR SC SCH (17:00)
--- NOTE | 2019-05-04 17:10 | NUR ---
Notified Dr Hi EKG result Arrythmia with first degree AV block, no new orders received, patient not in any distress. Dressing changed on both buttock, Allevyn dressing on
[2019-05-04] MEDS: LABETALOL HCL 100 MG TAB PO SCH (17:32)
[2019-05-04] MEDS: MUPIROCIN 2% OINT 22 GM TUBE TOP SCH (18:26)
[2019-05-04] MEDS: DORZOLAMIDE HCL (OPTH) 10 ML BOTTLE OP SCH (18:26)
--- NOTE | 2019-05-04 19:20 | NUR ---
Bedside report with morning nurse. Pt alert and orient to name. Lying in bed HOB 60 degrees. c/o lower back pain 04/15. Family at bedside. Call light within reach. Will continue to monitor.
[2019-05-04] MEDS: ACETAMINOPHEN 325 MG TAB PO PRN (19:36)
[2019-05-04 20:00] VITALS: BP 102/49
[2019-05-04 20:36] VITALS: BP 102/49
--- NOTE | 2019-05-04 20:52 | History and Physical ---
CHIEF COMPLAINT: Lower extremity weakness. Direct admission from Clinic. HISTORY OF PRESENT ILLNESS: This is a 78-year-old -Welsh male with past medical history of depression, hypertension, hypothyroidism, and type 2 diabetes, who presented as a direct admission from the Internal Medicine Clinic due to worsening extremity weakness and concerns of a wound on the sacral decubiti. The patient was seen and evaluated at bedside on the medical floor with his and another family member. We had a very long discussion, which I saw Mr. Bryant Sanz at [facility] before. At that time, we had Neurology come and evaluate him and they needed to do further testing in the office and thought he was significant amount of pain medication, which was this patient's true symptoms. At that time, Dr. Maya Lacy recommended for him to be off his pain medications, show up in the office in 2 to 3 weeks, so she can evaluate him further. Apparently, the family did not show up. It seems like that the patient was not in network with the neurologist. At that time, the family did not seek to find another neurologist instead continued to pursue chronic back pain with the pain specialist. Today, he reports back to the primary care's office due to worsening pain and lower extremity weakness needing further neurological workup. The patient was seen and evaluated at bedside on the medical floor. Currently, he is doing well with no complaints. He does endorse that he does have difficulty ambulating and walking. He does use a walker and a cane, still very weak. According to the , it has progressively gotten worse in terms of his weakness. His back pain is still present. It has been like there for significant number of years. He denies any urinary or any bladder or bowel incontinence. He is otherwise doing well. He is stable. He has been sleeping more than usual. He stays in the bed very often. He is now become more bed-bound. He cannot walk very well. He developed this unstageable sacral buttock wound, but no discharge seen. The patient is seen and evaluated at bedside on the medical floor. He is currently doing well. No other complaints at this time. REVIEW OF SYSTEMS: Pertinent positives: Lower extremity weakness, now becoming more bed-bound. Pertinent negatives: Denies any chest pain, palpitation, nausea, vomiting, diarrhea, dysuria, hematuria, frequency, urgency, lightheadedness, dizziness, abdominal pain, headaches, shortness of breath, cough, congestion, fever, or any other complaints. The rest of 14-point review of systems are reviewed with the patient and are negative. ALLERGIES: NO KNOWN DRUG ALLERGIES. HOME MEDICATIONS: Januvia 25 mg daily, losartan 100 mg daily, lisinopril 2.5 mg daily, levothyroxine 100 mcg daily, labetalol 100 mg p.o. b.i.d., hydrochlorothiazide 25 mg a day, Lasix 40 mg daily. Lexapro 10 mg daily. PAST MEDICAL HISTORY: Type 2 diabetes, hypotension, hypothyroidism. PAST SURGICAL HISTORY: Reports none. FAMILY HISTORY: Hypertension and diabetes. SOCIAL HISTORY: No drugs, no alcohol. Does not smoke. Good social support. PHYSICAL EXAMINATION: VITAL SIGNS: He is afebrile, normotensive, respiratory rate is good. GENERAL: Not in acute distress. Alert and oriented x3. Cooperative on examination. HEENT: Head is normocephalic and atraumatic. Eyes; pupils are equal, round, and reactive to light bilaterally. Extraocular muscles are intact bilaterally. Throat, no evidence of erythema or exudates in the posterior pharynx. Has poor dentition. NECK: Supple. Good range of motion. PULMONARY: Clear to auscultation bilaterally. No wheezing or rhonchi. No crackles appreciated. CARDIOVASCULAR: Positive S1, S2. No murmurs, rubs, or appreciated. ABDOMEN: Soft, nondistended, and nontender to palpation. Bowel sounds present. MUSCULOSKELETAL: Strength is 5/5 throughout. No evidence of any muscle deficits on examination. No weakness appreciated. NEUROLOGICAL: Cranial nerves II through XII grossly intact. No evidence of any neurological deficits on exam. in the bilateral lower extremities. SKIN: Intact. Warm to touch. Good cap refill. PSYCHIATRIC: Normal affect and mood. EXTREMITIES: No edema. Good range of motion throughout. LABORATORY DATA: Pending. IMAGING STUDIES: None. IMPRESSION: 1. Progressive lower extremity weakness, needing further neurological workup. 2. Chronic back pain. 3. Unstageable chronic and sacral wound. 4. Hypertension. 5. Type 2 diabetes. PLAN: At this time, I already consulted Neurology for further management and care. I will defer all imaging to Neurology. I have discussed this with the family at bedside and they verbalized understanding. In relation to his unstageable wound, we will have the Wound Care nurse come and evaluate him closely. I will start him back on some pain control for his chronic back pain. Get PT and OT to work with the patient. I will resume all his antihypertensive medications. Start him on his Januvia low-dose insulin, sliding scale, Accu-Cheks as well. He is on Lovenox for DVT prophylaxis. Once again, I have discussed the plan of care with the nursing staff at bedside, the patient, and the family and they verbalized understanding and agrees with plan of care. MD ANUEL Steele/CATARINA /[id number]
[2019-05-04] MEDS: LATANOPROST(OPTH) 2.5 ML BTL OP SCH (21:00)
[2019-05-05] VITALS (8 sets, daily range): BP systolic 102–150; BP diastolic 50–89
--- NOTE | 2019-05-05 00:38 | Consultation ---
DATE OF CONSULTATION: Neurology Consult Note HISTORY OF PRESENT ILLNESS: Mr. Sanz is a 78-year-old left-hand dominant man with past medical history significant for hypertension, hyperlipidemia, diabetes mellitus type 2, thyroid disease, chronic kidney disease stage 3, and depression, admitted to [facility] on May 04, 2019, as a direct admission for "worsening neurological symptoms." Approximately four weeks ago, the patient's significant other, who is at the bedside and provides the majority of the medical history, noted progressively worsening forgetfulness and disorientation. When questioned further, Mr. Sanz's partner reports the patient has been disoriented to time. Often over the past four weeks, he has been confused as to what day of the week it is, what time of day is, etc. Furthermore, Mr. Sanz's partner endorses short-term memory deficits. Mr. Sanz will not recall eating a meal 2 or 3 hours prior, a conversation which occurred 2 or 3 hours prior, whether or not the bills have been paid even though he and his partner sat down and pay them a few hours previously, etc. In addition to the disorientation and forgetfulness, Mr. Sanz's partner reports poor sleep, especially between the hours of midnight and 0300 hours, as well as generalized weakness. Mr. Sanz does have known decubitus ulcers over the sacrum. His partner reports these have "worsened" for the past few weeks. Mr. Sanz's partner does not report fevers or chills, shortness of breath, productive cough, nausea, vomiting, or diarrhea over the past few weeks. He does not report pain with urination or worsening urinary urgency. Mr. Sanz's partner does report increased urinary frequency. The patient's partner does not report headaches, neck pain/stiffness, or photophobia. The patient's partner does not report an antecedent illness, injury, or vaccination prior to the onset of the above symptoms. Mr. Sanz presented to his primary care physician's office on the day of admission for a routine followup appointments. Upon learning of the patient's progressively worsening symptoms described above, arrangements were made for Mr. Sanz to be admitted directly to [facility] for further evaluation and treatment. REVIEW OF SYSTEMS: Unable to assess secondary to the patient being encephalopathic. PAST MEDICAL HISTORY: Hypertension, hyperlipidemia, diabetes mellitus type 2, thyroid disease, chronic kidney disease stage 3, depression, questionable history of thyroid cancer, and chronic low back pain. PAST SURGICAL HISTORY: Lumbar spine surgery, thyroidectomy, bilateral inguinal hernia repair, and left cataract removed. PAST HOSPITALIZATIONS: Surgeries/procedures as listed. FAMILY MEDICAL HISTORY: Thyroid disease. SOCIAL HISTORY: Mr. Sanz is a . He is retired. Mr. Sanz does not report current or prior tobacco or recreational drug use. He does report occasional alcohol use. HOME MEDICATIONS: Vitamin D3 of 2000 units by mouth daily, vitamin B12 of 1000 mcg by mouth daily, dorzolamide one drop in both eyes twice daily, Lexapro 10 mg by mouth daily, Lasix 40 mg by mouth daily, hydrochlorothiazide 25 mg by mouth daily, [place] 1 tablet by mouth every 6 hours as needed for pain, labetalol 100 mg by mouth twice daily, latanoprost one drop in both eyes every evening, levothyroxine 100 mcg by mouth daily, lisinopril 2.5 mg by mouth daily, losartan 100 mg by mouth daily, mupirocin apply topically twice daily, and Januvia 25 mg by mouth daily. ALLERGIES: NO KNOWN DRUG ALLERGIES. NO KNOWN FOOD ALLERGIES. NO KNOWN ALLERGIES TO LATEX. NO KNOWN ALLERGIES TO IODINE OR OTHER CONTRAST MATERIALS. PHYSICAL EXAMINATION: VITAL SIGNS: Height 74 inches, weight 186.6 pounds, BMI 24.0 kg/m2, blood pressure not recorded, pulse 81 beats per minute, respiratory rate 17 breaths per minute, and oxygen saturation 96% on room air. GENERAL: The patient is awake and alert, does not appear distressed. HEENT: Normocephalic and atraumatic. Pupils are surgical on the left, round and sluggish on the right. Moist mucous membranes. NECK: Supple. No appreciable thyromegaly. No appreciable carotid bruits. CARDIOVASCULAR: S1, S2, regular rate and rhythm. No murmurs, rubs, or gallops. RESPIRATORY: Clear to auscultation bilaterally. No wheezes, rhonchi, or rales. EXTREMITIES: The skin is warm and dry. No clubbing, cyanosis, or edema. The posterior tibial and dorsalis pedis pulses are 1+ and symmetric. SKIN: No rashes or lesions. NEUROLOGIC: Memory/Attention: The patient is awake and alert, oriented to person, place (doctor's office, city, state), time (month only), but not the situation. Cranial Nerves: Cranial nerve I - not tested. Cranial nerves II, III, IV, and - pupils are surgical on the left, round and sluggish on the right. Extraocular movements intact. No nystagmus. Cranial nerve V - sensation to light touch and pinprick is intact in the bilateral V1 through V3 distributions. Strength in the temporalis and masseter muscles are within normal limits. Cranial nerve VII - the face is symmetric as are all facial movements. Strength is within normal limits. Cranial nerve VIII - hearing is diminished to finger rub bilaterally. Cranial nerves IX, X - the soft palate elevates equally and symmetrically. Cranial nerve XI - normal strength of the bilateral sternocleidomastoid and trapezius muscles. Cranial nerve XII - the tongue protrudes midline and moves symmetrically from [id number]. Strength: Bulk is normal. Strength is 5/5 in the bilateral deltoids, biceps, triceps, wrist flexors and extensors, finger flexors and extensors, and intrinsic hand muscles. Bilateral hip flexors are 4/5, bilateral knee flexors are 4/5, bilateral knee extensors are 4+/5, bilateral ankle dorsiflexion is 4/5, bilateral ankle plantar flexion is 4+/5, and bilateral intrinsic foot muscles are 4/5. Tone is normal in both arms and both legs. DTRs: Deep tendon reflexes are 2+ and symmetric at the triceps, biceps, and brachioradialis. Deep tendon reflexes are trace and symmetric at the patellas. Deep tendon reflexes are absent and symmetric at the Achilles. Plantar responses are flexor bilaterally. Sensation: Sensation is intact to light touch and pinprick in both arms and both legs. Cerebellar: Unable to assess secondary to the patient's confusion. Gait: Deferred. Speech: Spontaneous speech is mildly dysarthric without aphasia. Repetition is intact. Involuntary Movements: None. Pronator Drift: Positive in both arms. LABORATORY DATA: A comprehensive metabolic panel is significant for chloride of 108, carbon dioxide of 18, anion gap of 18.9, BUN of 36, creatinine of 2.08, estimated GFR of 38, glucose of 120, total bilirubin of 0.1, albumin of 3.1, and globulin of 4.2. The CBC with differential and platelets reveals a white blood cell count of 9.43 with a right shift with 53.3% neutrophils, 12.6% lymphocytes, 7.2% monocytes, 25.1% eosinophils, and 0.6% basophils. The hemoglobin and hematocrit are 9.8 and 28.2, respectively. The platelet count is 349. DIAGNOSTIC STUDIES: Electrocardiogram on 05/04/2019: Sinus rhythm at 69 beats per minute with sinus arrhythmia with first-degree AV block. Chest x-ray on 05/04/2019: No focal pneumonia or pulmonary edema. ASSESSMENT AND PLAN: Mr. Sanz is a 78-year-old left-hand dominant man, admitted to [facility] on May 04, 2019, with subacute confusion/disorientation, generalized weakness, and poor sleep. The patient has undergone a thorough neurological examination with findings detailed above. His laboratory data and other diagnostic studies have been reviewed and are documented above. The etiology of the patient's encephalopathy is unclear. Based on the history provided by Mr. Sanz's partner, I strongly suspect a metabolic encephalopathy underlying the patient's symptoms. Other causes such as stroke, hemorrhage, mass with or without mass effect, or seizure disorder are possible, less likely. RECOMMENDATIONS: Are as follows: 1. Additional blood and urine studies will be ordered to evaluate for treatable causes of metabolic encephalopathy. Those labs will include: A thyroid-stimulating hormone, ammonia, vitamin B1, vitamin B6, vitamin B12, folate, methylmalonic acid, RPR, blood cultures x2, urinalysis with urine culture. 2. An MRI of the brain without contrast will be ordered to evaluate for intracranial pathology as the source of the patient's encephalopathy. 3. A routine EEG will be ordered to evaluate for possible seizures. 4. Treatment with sedative hypnotic and pain medication should be limited as these medications will alter the patient's sensorium. Therefore, Mr. Sanz will be prescribed acetaminophen 650 mg by mouth every 6 hours as needed for mild pain (1/10 to 3/10). Treatment with hydrocodone will be continued, but will be given only for severe pain (7/10 to 10/10). 5. Utilize environmental cues to limit delirium. 6. Defer treatment of the remaining medical comorbidities to the primary and other services following the patient. Thank you for this consultation. I will continue to follow the patient, while he remains in the hospital. TIME SPENT: 70 minutes. Elle Gtz MD CP/MIRNAL /[id number] MTDD
[2019-05-05] MEDS: ACETAMINOPHEN 325 MG TAB PO PRN (02:25)
--- NOTE | 2019-05-05 03:38 | NUR ---
Pt facial grimacing and restlessness c/o back pain. Faces pain scale 6/10. Admin prn Tylenol. repositioned in bed. Pt confused and babbling about events in life as if they are happening now. Bed low and locked. Bed alarm on. Family at bedside.
[2019-05-05] MEDS: LEVOTHYROXINE SODIUM 100 MCG TAB PO SCH (06:00)
--- NOTE | 2019-05-05 06:15 | NUR ---
Per physician's order straight catheter inserted using sterile technique. Patient tolerated the procedure well. 200 ml of clear shalini urine returned upon insertion of catheter into bladder. Specimen ordered, collected, and sent to the lab for examination.
[2019-05-05 06:25] LABS: BASOPHILS # (AUTO) 0.1 (0.0-0.1); BASOPHILS % 0.8 % (0.0-1.0); EOSINOPHILS % 22.6 % (0.0-6.0); HEMATOCRIT 28.1 % (38.2-49.6); HEMOGLOBIN 9.6 g/dL (14.0-18.0); LYMPHOCYTES # (AUTO) 1.6 (1.0-3.2); LYMPHOCYTES % 17.9 % (18.0-39.1); MEAN CORPUSCULAR HEMOGLOBIN 31.5 pg (28-32); MEAN CORPUSCULAR HGB CONC 34.2 g/dL (31-35); MEAN CORPUSCULAR VOLUME 92.1 fL (81-99); MONOCYTES # (AUTO) 0.9 (0.2-0.8); MONOCYTES % 10.2 % (4.4-11.3); NEUTROPHILS # (AUTO) 4.1 (2.1-6.9); NEUTROPHILS % 46.7 % (38.7-80.0); PLATELET COUNT 339 x10e3/uL (140-360); RED BLOOD COUNT 3.05 x10e6/uL (4.3-5.7)
[2019-05-05 06:46] LABS: ANION GAP 16.5 mmol/L (8-16); CALCIUM 9.1 mg/dL (8.4-10.2); CREATININE, SERUM 2.23 mg/dL (0.72-1.25); POTASSIUM 3.5 mmol/L (3.5-5.1)
[2019-05-05 07:21] LABS: FOLATE 10.6 ng/mL (7.0-15.4)
[2019-05-05 08:10] LABS: BILIRUBIN,URINE NEGATIVE (NEGATIVE); CLARITY,URINE SL CLOUDY (CLEAR); COLOR,URINE YELLOW (YELLOW); KETONES,URINE NEGATIVE (NEGATIVE); LEUKOCYTE ESTERASE ,URINE NEGATIVE (NEGATIVE); NITRITE,URINE NEGATIVE (NEGATIVE); PROTEIN,URINE DIPSTICK NEGATIVE (NEGATIVE); URINE UROBILINOGEN 0.2 mg/dL (0.2 - 1)
[2019-05-05 08:27] LABS: BACTERIA,URINE MODERATE /HPF; EPITHELIAL CELLS,URINE FEW /LPF; RBC,URINE 0-5 /HPF (0-5)
[2019-05-05 08:28] LABS: AMORPHOUS SEDIMENT,URINE FEW (FEW)
[2019-05-05] MEDS: LABETALOL HCL 100 MG TAB PO SCH ×2 (08:34→17:41)
[2019-05-05] MEDS: LOSARTAN POTASSIUM 100 MG TAB PO SCH (08:34)
[2019-05-05] MEDS: ESCITALOPRAM OXALATE 10 MG TAB PO SCH (08:34)
[2019-05-05] MEDS: DORZOLAMIDE HCL (OPTH) 10 ML BOTTLE OP SCH ×2 (08:34→17:41)
[2019-05-05] MEDS: SITAGLIPTIN 100 MG TAB PO SCH (08:34)
[2019-05-05] MEDS: CHOLECALCIFEROL 1,000 UNIT TAB PO SCH (08:34)
[2019-05-05] MEDS: HYDROCHLOROTHIAZIDE 25 MG TAB PO SCH (08:34)
[2019-05-05] MEDS: MUPIROCIN 2% OINT 22 GM TUBE TOP SCH (08:34)
[2019-05-05] MEDS: FUROSEMIDE 40 MG TAB PO SCH (08:34)
[2019-05-05] MEDS: CYANOCOBALAMIN 1,000 MCG TAB PO SCH (08:54)
[2019-05-05] MEDS ORDERED: LISINOPRIL 2.5 MG TAB PO SCH (09:00)
[2019-05-05 09:58] LABS: EOSINOPHILS % (MANUAL) 24 % (0-7); LYMPHOCYTES % (MANUAL) 19 % (19-48); MONOCYTES % (MANUAL) 4 % (3.4-9.0); NEUTROPHILS % (MANUAL) 53 % (40-74)
[2019-05-05 10:00] LABS: PLATELET ESTIMATE ADEQUATE; PLATELET MORPHOLOGY COMMENT NORMAL; RBC MORPHOLOGY COMMENT NORMAL
--- NOTE | 2019-05-05 10:41 | NUR ---
WOUND CARE CONSULTATION: THIS IS A 78 YEAR OLD MALE PATIENT ADMITTED TO [facility] FOR WORSENING NEUROLOGICAL FUNCTION. HEAD TO TOE SKIN ASSESSMENT PERFORMED. PATIENT HAS A STAGE 2 PRESSURE ULCER TO THE LEFT BUTTOCK MEASURING 1X1.7X0.1CM, 100% PINK GRANULATION TO WOUND BED NOTED. PATIENT HAS A STAGE 2 PRESSURE ULCER TO THE RIGHT BUTTOCK MEASURING 0.7X0.5X0.1CM, 100% PINK GRANULATION NOTED TO WOUND BED. LABS: WBC8.88 ALB3.1 BLOOD CULTURE = PENDING RECOMMENDATION: -NURSING TO APPLY ALTERNATING PRESSURE RELIEF MATTRESS. -NURSING TO APPLY BILATERAL HEEL PROTECTORS WITH PILLOW SUSPENSION. -TURN EVERY 2 HOURS AND PRN. -NURSING TO CLEAN RIGHT BUTTOCKS STAGE 2 PRESSURE ULCER AND LEFT BUTTOCK STAGE 2 PRESSURE ULCER WITH NORMAL SALINE, PAT DRY, APPLY VENELEX AND ALLEVYN FOAM DRESSING; CHANGE BID AND PRN. THANK YOU FOR THIS WOUND CARE CONSULT. Addendum: 05/05/19 at 1046 by Haily Shah RN Amended: Links added.
[2019-05-05] MEDS ORDERED: BALSAM PERU/CASTOR OIL 60 GM OINT...G. TP PRN (11:15)
--- NOTE | 2019-05-05 14:09 | NUR ---
PT REFUSED TO CONTINUE PARLIAMENTARY LIBRARIAN FOR EEG. SAID TAKE OFF THE WIRES AND GET AWAY FROM ME. 2 NURSE ASS. AT BEDSIDE HELPING CALM AND ASSIST PT TO STAY IN BED
--- NOTE | 2019-05-05 16:43 | Diagnostic Imaging Report ---
Exam: Brain MRI without IV contrast History: Altered mental status Comparison studies: None Technique: 3-D T1, axial T2 FLAIR, axial T2*GRE, axial T2. Intravenous contrast: None Findings: Exam is limited by artifacts related to patient motion. Scalp: Normal in signal. No masses. Bone marrow: Normal in signal intensity. Brain sulci: Appropriate for age. Ventricles: Normal in size. No hydrocephalus. Extra axial spaces: No mass, no fluid collection. Parenchyma: There is mild age-related generalized volume loss as well as mild disproportionate volume loss along the the bilateral anteromedial temporal lobes and hippocampi remaining brain volume is within normal limits for age. No significant focal disproportionate lobar, brainstem or cerebellar atrophy. No mass, hemorrhage or acute ischemia. A few punctate T2 FLAIR hyperintense foci in the supratentorial white matter are nonspecific but are most compatible with minimal chronic microvascular ischemic changes. Suprasellar region: No abnormalities. Craniocervical junction: Patent foramen magnum. No Chiari malformation. Vessels: Normal flow-voids in the arteries and sinuses. IMPRESSION: Limited exam due to motion artifacts. In spite of limitations: 1. No acute abnormalities. 2. Minimal chronic microvascular ischemic changes. 3. Mild age-related generalized volume loss. Slightly greater disproportionate volume loss along the anteromedial temporal lobes and hippocampi are nonspecific but can be seen with Alzheimer's dementia in the appropriate clinical context. Signed by: Dr. Vincenzo Velez M.D. on 05/05/2019 4:40 PM
--- NOTE | 2019-05-05 16:45 | NUR ---
Visit made by the Spiritual Care Department Pastoral Visitor, Maryana Franklin. PV provided pastoral presence, prayer, hospitality, and supportive listening. Pastoral Visitor informed pt/family of the scope of [employer] and availability. GUILHERME BERGER [employer] Spiritual Care Department O: [phone] Pager: [phone] ([phone] calling from)
--- NOTE | 2019-05-05 16:47 | Progress Note ---
DATE: 05/05/2019 Medicine Progress note SUBJECTIVE: The patient is doing well today with no other issues. Neurology did come to evaluate him, several imaging studies have been performed. PHYSICAL EXAMINATION: VITAL SIGNS: Temperature is 97.7, pulse 62, respiratory rate 16, blood pressure 120/89, pulse ox 90% on room air. GENERAL: Not in acute distress. Alert and oriented x3. Cooperative on examination. HEENT: Head is normocephalic and atraumatic. Eyes; pupils are equal, round, and reactive to light bilaterally. Extraocular muscles are intact bilaterally. Throat, no evidence of erythema or exudates in the posterior pharynx. Has poor dentition. NECK: Supple. Good range of motion. PULMONARY: Clear to auscultation bilaterally. No wheezing, no rales, no rhonchi. No crackles appreciated. CARDIOVASCULAR: Positive S1, S2. No murmurs, rubs, or appreciated. ABDOMEN: Soft, nondistended, and nontender to palpation. Bowel sounds present. MUSCULOSKELETAL: Strength is 5/5 throughout. No evidence of any muscle deficits on examination. No weakness appreciated. NEUROLOGICAL: Cranial nerves II through XII grossly intact. No evidence of any neurological deficits on exam. SKIN: Intact. Warm to touch. Good cap refill. PSYCHIATRIC: Normal affect and mood. EXTREMITIES: No edema. Good range of motion throughout. LABORATORY DATA: Lab findings show white count 8.8, hemoglobin 9.6, hematocrit is 28, platelets of 339. Chemistries reviewed and stable except for creatinine of 2.2. Ammonia level 76, vitamin B12 of 1710, folate 10, TSH is 4.8, B1 and B6 are pending. LFTs within normal range. MICROBIOLOGY: Blood and urine cultures pending. IMAGING STUDIES: MRI of the brain is pending. EEG pending. IMPRESSION: 1. Progressive lower extremity weakness, currently under neurological evaluation. 2. Chronic back pain. 3. Stage 2 sacral wound. 4. Hypertension. 5. Type 2 diabetes. PLAN: At this time, Neurology was consulted and several serologies as well as MRI of the brain has been ordered. We will await those results to get final recommendations by Neurology. Wound care nurse came and evaluate the patient, likely has a stage 2 sacral wound, which will be monitored very closely. He presented this way on admission. Continue with his anti-glycemic medications. Get a.m. labs. We will continue same plan of care. Work with PT/OTDuncan Masters for DVT prophylaxis. MD ANUEL Steele/CATARINA /[id number]
[2019-05-05] MEDS: ENOXAPARIN SOD INJ 40 MG/0.4 ML SYR SC SCH (17:40)
[2019-05-05] MEDS: LATANOPROST(OPTH) 2.5 ML BTL OP SCH (20:55)
[2019-05-05] MEDS: BALSAM PERU/CASTOR OIL 60 GM OINT...G. TP SCH (20:55)
--- NOTE | 2019-05-05 23:08 | Electroencephalogram ---
DATE OF STUDY: 05/05/2019 REQUESTING PHYSICIAN: REQUESTING PHYSICIAN: Elle Gtz MD PATIENT HISTORY: This 78-year-old man with a history of gradually worsening confusion is having an EEG for evaluation for epileptiform activity. The patient is not taking any medications which might affect the EEG. TECHNIQUE: This is a routine, portable EEG, recorded digitally, using the International 10/20 electrode placement system, and done in the inpatient setting with the patient awake. The EEG is inadequate due to excessive muscle and electrical artifact. There is no portion of this study which is able to be interpreted. An order for a repeat EEG will be placed. This study should be performed on May 06, 2019. Elle Gtz MD CP/MODL /[id number] MTDD
[2019-05-06] VITALS (9 sets, daily range): BP systolic 112–140; BP diastolic 53–69
[2019-05-06] MEDS: HYDROCODONE/APAP 10MG-325MG TAB PO PRN ×2 (04:54→16:45)
[2019-05-06 06:43] LABS: BASOPHILS # (AUTO) 0.1 (0.0-0.1); BASOPHILS % 0.8 % (0.0-1.0); EOSINOPHILS # (AUTO) 0.9 (0.0-0.4); EOSINOPHILS % 11.8 % (0.0-6.0); HEMATOCRIT 26.2 % (38.2-49.6); HEMOGLOBIN 8.8 g/dL (14.0-18.0); LYMPHOCYTES # (AUTO) 1.6 (1.0-3.2); LYMPHOCYTES % 20.4 % (18.0-39.1); MEAN CORPUSCULAR HEMOGLOBIN 31.3 pg (28-32); MEAN CORPUSCULAR HGB CONC 33.6 g/dL (31-35); MEAN CORPUSCULAR VOLUME 93.2 fL (81-99); MONOCYTES % 12.3 % (4.4-11.3); NEUTROPHILS # (AUTO) 4.3 (2.1-6.9); NEUTROPHILS % 53.2 % (38.7-80.0); PLATELET COUNT 312 x10e3/uL (140-360); RED BLOOD COUNT 2.81 x10e6/uL (4.3-5.7); RED CELL DISTRIBUTION WIDTH 17.6 % (11.7-14.4)
[2019-05-06] MEDS: LEVOTHYROXINE SODIUM 100 MCG TAB PO SCH (06:47)
--- NOTE | 2019-05-06 06:48 | NUR ---
RECEIVED PATIENT RESTING IN BED. NO ACUTE DISTRESS NOTED. NO S/S OF PAIN NOTED. CALL LIGHT WITHIN REACH. BED IN THE LOWEST POSITION.
[2019-05-06 07:10] LABS: ALBUMIN 2.8 g/dL (3.5-5.0); ALBUMIN/GLOBULIN RATIO 0.8 (0.8-2.0); ANION GAP 17.2 mmol/L (8-16); CALCIUM 9.3 mg/dL (8.4-10.2); CREATININE, SERUM 2.08 mg/dL (0.72-1.25); POTASSIUM 3.2 mmol/L (3.5-5.1)
[2019-05-06] MEDS: CHOLECALCIFEROL 1,000 UNIT TAB PO SCH (08:13)
[2019-05-06] MEDS: CYANOCOBALAMIN 1,000 MCG TAB PO SCH (08:13)
[2019-05-06] MEDS: ESCITALOPRAM OXALATE 10 MG TAB PO SCH (08:13)
[2019-05-06] MEDS: LOSARTAN POTASSIUM 100 MG TAB PO SCH (08:13)
[2019-05-06] MEDS: FUROSEMIDE 40 MG TAB PO SCH (08:13)
[2019-05-06] MEDS: LABETALOL HCL 100 MG TAB PO SCH ×2 (08:13→16:45)
[2019-05-06] MEDS: SITAGLIPTIN 100 MG TAB PO SCH (08:13)
[2019-05-06] MEDS: HYDROCHLOROTHIAZIDE 25 MG TAB PO SCH (08:13)
[2019-05-06] MEDS: DORZOLAMIDE HCL (OPTH) 10 ML BOTTLE OP SCH ×2 (08:15→16:45)
[2019-05-06] MEDS: BALSAM PERU/CASTOR OIL 60 GM OINT...G. TP SCH ×2 (10:00→21:00)
[2019-05-06] MEDS ORDERED: POTASSIUM CHLORIDE 20 MEQ TAB CR PO ONE (15:45)
[2019-05-06] MEDS: ACETAMINOPHEN 325 MG TAB PO PRN (16:00)
[2019-05-06] MEDS: ENOXAPARIN SOD INJ 40 MG/0.4 ML SYR SC SCH (16:45)
--- NOTE | 2019-05-06 16:57 | NUR ---
Nutrition Intervention Note RD Recommendation(s) for Physician: -Continue diet as ordered -Rec Ensure Enlive BID to increase protein-calorie intake -Rec MVi w/ minerals and vitamin C for wound healing Plan of Care: RD following, monitoring for tolerance and adequacy, ONS rec Nutrition reason for involvement: Stage II pressure wound RD Assessment 05/06 - 78yo M, who was admitted for worsening neurological function. Visited pt in the room. Pt reported fair appetite with 75-100% recorded meal intake. No GI complains reported. Pt denied any chewing or swallowing difficulty. Pt has developed stage II pressure ulcer due to physical inactivity after his back surgery a month ago. Pt drinks 1 Ensure at home daily and would like to have some while in [facility]. No obvious sign of muscle and fat loss noted. RD encouraged protein intake to promote wound healing. Will continue to monitor and follow. Principal Problems/Diagnoses: Progressive lower extremity weakness, currently under neurological evaluation. PMH: Type 2 diabetes, hypotension, hypothyroidism. GI: abdomen soft, non-tender, round, flatus present Skin: stage 2 pressure ulcer to the right buttock Labs: (05/06) K 3.2 L, BUN 39 H, Creatinine 2.08 H, Glucose 108 - 160 Meds: Januvia, diuretics, vitamin D3, synthroid Ht: 74in Wt: 186lb BMI: 23.9kg/m2 IBW: 190lb +/- 10% Malnutrition Evaluation (05/06/2019) The patient does not meet criteria for a specified degree of malnutrition at this time. Will re-evaluate at follow-up as appropriate. Energy intake: <75% of estimated energy requirements for >1 month Weight loss: <5% in a month Fat loss: None Muscle loss: None Supporting Evidence: Fluid accumulation: unable to evaluate Functional Status: reduced Nutrition Prescription (Diet Order): regular diet Estimated Nutritional Needs: Calories: 2100 2520kcal(25-30kcal/kg/d) Weight used: CBW Protein: 84 126g(1-1.5g/kg/d) Weight used: CBW Diet Adequacy: Meeting calorie needs, Not meeting protein needs Diet Education Needs Assessment: Diet education not indicated; patient on regular diet. Nutrition Care Level: low Nutrition Diagnosis: Increased protein needs related to altered skin integrity as evidenced by stage II pressure ulcer. Goal: Patient will meet 75-100% of estimated needs by follow up Progress: Progressing Interventions: General healthful diet, Commercial beverage, Multivitamin/mineral supplement therapy Monitoring/Evaluation: Total energy intake, Total protein intake, Modified diet, Liquid supplement, and Weight change Signed: Deisy Ness MS, RD, LD
--- NOTE | 2019-05-06 19:27 | NUR ---
REPORT GIVEN TO ONCOMING NURSE. WALKING ROUNDS DONE. PATIENT IS RESTING IN BED. NO ACUTE DISTRESS NOTED. FAMILY AT BEDSIDE. CALL LIGHT WITHIN REACH. BED IN THE LOWEST POSITION.
--- NOTE | 2019-05-06 20:03 | Progress Note ---
DATE: 05/06/2019 Medicine Progress Note SUBJECTIVE: The patient is doing well today with no complaints. He is currently at his baseline. No changes overnight. OBJECTIVE: VITAL SIGNS: Temperature 97.7, pulse 68, respirations 18, blood pressure , and pulse ox 96% on room air. GENERAL: Not in acute distress, alert and oriented x3. Cooperative on examination. HEENT: Head is normocephalic and atraumatic. Eyes; pupils are equal, round, and reactive to light bilaterally. Extraocular movements are intact bilaterally. Throat; no evidence of erythema or exudates in the posterior pharynx. Has poor dentition. NECK: Supple, good range of motion. PULMONARY: Clear to auscultation bilaterally. No wheezing, rales, or rhonchi. No crackles appreciated. CARDIOVASCULAR: Positive S1, S2. No murmurs, rubs, or gallops appreciated. ABDOMEN: Soft, nondistended, and nontender to palpation. Bowel sound present. MUSCULOSKELETAL: Strength is 5/5 throughout. No evidence of any muscle deficits on examination. No weakness appreciated. NEUROLOGIC: Cranial nerve II through XII grossly intact. No evidence of neurological deficits on exam. SKIN: Intact. Warm to touch. Good cap refill. PSYCHIATRIC: Normal affect and mood. EXTREMITIES: No edema. Good range of motion throughout. LAB FINDINGS: Showed white count 7.9, hemoglobin 8.9, hematocrit 26, and platelets of . Chemistry, sodium 142, potassium 3.2, chloride 110, bicarb 18, anion gap 13, BUN is 39, creatinine is 2.08, and glucose 108. LFTs were within normal range. Microbiology, blood and urine cultures no growth today. IMAGING STUDIES: MRI of the brain showed no acute abnormalities, minimal chronic microvascular ischemic changes, mild age-related generalized volume loss, slightly greater disproportionate volume loss along the anterior medial temporal lobes and hippocampal can be seen with alzheimer dementia in the appropriate clinical setting. IMPRESSION: 1. Alzheimer dementia with lower extremity weakness, likely contributing factor from Alzheimer dementia. 2. Chronic back pain. 3. Stage II sacral wound. 4. Hypertension. 5. Type 2 diabetes. PLAN: At this time, EEG is pending, apparently it was not performed today. MRI of the brain noted. I spoke with the neurologist and felt this is likely due to Alzheimer dementia leading to his underlying weakness and inability to walk over time and also from his underlying peripheral neuropathy. His stage II sacral wound is being monitored by the Wound Care nurse. Otherwise, further workup for neurological issues was done as an outpatient under EMGs. I do need the EEG report to be read, which is still pending from the tech to come do this test. Once this performed in bed, the patient can be discharged home. MD ANUEL Steele/MODL /[id number]
[2019-05-06] MEDS: LATANOPROST(OPTH) 2.5 ML BTL OP SCH (21:00)
[2019-05-07] MEDS: HYDROCODONE/APAP 10MG-325MG TAB PO PRN ×3 (01:59→16:50)
[2019-05-07 04:10] VITALS: BP 128/60
[2019-05-07] MEDS: LEVOTHYROXINE SODIUM 100 MCG TAB PO SCH (06:14)
--- NOTE | 2019-05-07 06:58 | NUR ---
RECEIVED PATIENT RESTING IN BED. NO ACUTE DISTRESS NOTED. NO S/S OF PAIN NOTED AT THIS TIME. CALL LIGHT WITHIN REACH. BED IN THE LOWEST POSITION.
[2019-05-07 07:58] VITALS: BP 137/60
[2019-05-07 08:09] VITALS: BP 137/60
[2019-05-07] MEDS: CYANOCOBALAMIN 1,000 MCG TAB PO SCH (08:28)
[2019-05-07] MEDS: DORZOLAMIDE HCL (OPTH) 10 ML BOTTLE OP SCH ×2 (08:37→16:50)
[2019-05-07] MEDS: FUROSEMIDE 40 MG TAB PO SCH (08:38)
[2019-05-07] MEDS: CHOLECALCIFEROL 1,000 UNIT TAB PO SCH (08:38)
[2019-05-07] MEDS: LOSARTAN POTASSIUM 100 MG TAB PO SCH (08:38)
[2019-05-07] MEDS: SITAGLIPTIN 100 MG TAB PO SCH (08:38)
[2019-05-07] MEDS: BALSAM PERU/CASTOR OIL 60 GM OINT...G. TP SCH (08:38)
[2019-05-07] MEDS: HYDROCHLOROTHIAZIDE 25 MG TAB PO SCH (08:38)
[2019-05-07] MEDS: ESCITALOPRAM OXALATE 10 MG TAB PO SCH (08:38)
[2019-05-07] MEDS: LABETALOL HCL 100 MG TAB PO SCH ×2 (08:39→16:50)
[2019-05-07 12:23] VITALS: BP 102/51
[2019-05-07] MEDS ORDERED: CITRATE OF MAGNESIA 300ML BOTTLE PO ONE (15:15)
[2019-05-07] MEDS ORDERED: DOCUSATE SODIUM 100 MG CAP PO ONE (15:15)
[2019-05-07] MEDS ORDERED: ARICEPT5 MG PO (16:41)
[2019-05-07 16:42] VITALS: BP 149/72
[2019-05-07] MEDS: ENOXAPARIN SOD INJ 40 MG/0.4 ML SYR SC SCH (16:50)
--- NOTE | 2019-05-07 19:29 | NUR ---
REPORT GIVEN TO ONCOMING NURSE. PATIENT IS RESTING IN BED. NO ACUTE DISTRESS NOTED. CALL LIGHT WITHIN REACH. BED IN THE LOWEST POSITION. FAMILY AT BEDSIDE. PATIENT IS TO BE DISCHARGED.
[2019-05-07] MEDS ORDERED: DONEPEZIL HCL 5 MG TAB PO SCH (21:00)
--- NOTE | 2019-05-08 02:18 | Electroencephalogram ---
DATE OF STUDY: 05/07/2019 REQUESTING PHYSICIAN: REQUESTING PHYSICIAN: Dr. Elle Gtz. PATIENT HISTORY: This 78-year-old man with confusion is having an EEG for evaluation of epileptiform activity. The patient is not taking any medications which might affect the EEG. TECHNIQUE: This is a routine, portable EEG, recorded digitally, using the International 10/20 electrode placement system, and done in the inpatient setting with the patient awake and asleep. The EEG is adequate for interpretation. DESCRIPTION: Well-organized, well-sustained, 6-7 hertz activity is best seen symmetrically over the posterior head regions. No focal or epileptiform activity is recorded. Sleep is recorded with well-organized spindles and vertex waves. Photic stimulation is not performed. Hyperventilation is not performed. INTERPRETATION: This EEG is abnormal with the patient awake and asleep due to diffuse slowing of background electrocortical activity compatible with mild generalized encephalopathy. No epileptiform discharges are seen. Clinical correlation is recommended. Elle Gtz MD CP/MIRNAL /[id number]
--- NOTE | 2019-05-08 05:54 | Discharge Summary ---
FINAL DISCHARGE DIAGNOSES: 1. Alzheimer's dementia. 2. Lower extremity weakness, presumed to be from underlying peripheral neuropathy or possible myopathy. 3. Chronic back pain, on opioids. 4. Stage II sacral wound. 5. Hypertension. 6. Type 2 diabetes. 7. Chronic kidney disease, stage 3 to 4. CONSULTANTS: Neurology. PHYSICAL EXAMINATION: VITAL SIGNS: Temperature is 96.8, pulse 63, respiratory rate is 22, blood pressure 149/72, pulse ox 96% on room air. LABORATORY FINDINGS: Show white count was 7.9, hemoglobin 8.8, hematocrit 26, platelets of 312. Chemistry; sodium 142, potassium , chloride 110, bicarbonate was 18, anion gap 16. BUN was 39, creatinine was 2.08. Glucose is 148. Total bilirubin is 0.2. AST 16, ALT 21, alkaline phosphatase 51, ammonia level 36, total protein 6.5, albumin 2.8. Vitamin B1 pending. Vitamin B12 , folic acid was 10.6, TSH was 4.8. Urinalysis negative. Methylmalonic acid, all pending. MICROBIOLOGY: Blood cultures were negative. Urine cultures were negative. IMAGING STUDIES: Chest x-ray was negative. MRI of the brain performed shows no acute abnormalities. Minimal chronic microvascular ischemic changes. Mild age-related generalized volume loss. Slightly greater. There is proportion of volume loss along the anterior medial temporal lobes and hippocampi, nonspecific, but can be seen an Alzheimer's dementia in appropriate clinical context. EEG showed some slowing waves. There was some slowing of the waves. HOSPITAL COURSE: This is a 78-year-old male, who apparently has been having chronic back pain and worsening ability to ambulate, comes in as a direct admission by his primary care physician for further management and care. The patient had difficulty seeing an outpatient neurologist due to insurance issues and now presents to have a further workup. Neurology was consulted. MRI of the brain shows anterior medial temporal lobes and hippocampi volume loss concerning for underlying Alzheimer's dementia. EEG shows some slowing of the waves. I discussed this with Neurology. It felt by her the patient likely has Alzheimer's dementia and has been progressively getting worse for significant period of time. In terms of his lower extremity weakness, she thinks that it could be underlying myopathy and possibly underlying peripheral neuropathy, but need more further workup as an outpatient by getting his EMG to help assess and get more further serologies if indicated. At this time, he worked with PT and OT. He did get pain control for his underlying chronic back pain. His blood and urine cultures were found to be negative. His vital signs are stable as well. The entire plan of care was discussed with the family at bedside and the neurologist discussed the plan of care with them and they verbalized understanding. They were advised to follow up next Saturday in Neurology's office for EMG study to determine the next plan of care. It is felt also that his underlying ability not to walk is due to his chronic back pain as well. He also had a stage II sacral wound, which was addressed accordingly by the wound care team. On the day of discharge, vital signs were stable, labs were reviewed and stable. The patient is seen and evaluated, examined thoroughly on the day of discharge. No other complaints. The patient verbalized understanding and agreed to plan of care to follow up as an outpatient with the PCP in 1 week and a neurologist in 1 week time for EMG and further imaging studies as an outpatient. The patient was cleared for discharge by Neurology. MEDICATIONS: See med reconciliation form. DISPOSITION: Home. CONDITION: Stable. DIET: Heart healthy. In the event of any worsening symptoms, the patient was advised to come back to the ED for further evaluation. Discharge summary took greater than 35 minutes. MD ANUEL Steele/MIRNAL /[id number]
== END 2019-05-07 19:38 | disposition home or self-care (01) ==
LOC: EDSEX 12:25 → MED/SURG3 12:25 → OBSVTOIN 05-06 15:54 → INTOOBSV 05-06 15:54
PROVIDERS: ADMIT Internal Medicine; ATTEND Internal Medicine
DX: G30.9 Alzheimer's disease, unspecified (principal); N18.4 Chronic kidney disease, stage 4 (severe); F02.80 Dementia in other diseases classified elsewhere, unspecified severity, without behavioral disturbance, psychotic disturbance, mood disturbance, and anxiety; E11.40 Type 2 diabetes mellitus with diabetic neuropathy, unspecified; E11.22 Type 2 diabetes mellitus with diabetic chronic kidney disease; I12.9 Hypertensive chronic kidney disease with stage 1 through stage 4 chronic kidney disease, or unspecified chronic kidney disease; F32.9 Major depressive disorder, single episode, unspecified; E03.9 Hypothyroidism, unspecified; L89.152 Pressure ulcer of sacral region, stage 2; G72.9 Myopathy, unspecified; R26.2 Difficulty in walking, not elsewhere classified; R47.1 Dysarthria and anarthria; M54.9 Dorsalgia, unspecified; G89.29 Other chronic pain; Z79.84 Long term (current) use of oral hypoglycemic drugs; Z74.01 Bed confinement status
CPT/HCPCS: 36415 ×4; 70551; 71045; 80048; 80053 ×2; 81001; 82140; 82607 ×2; 82746; 82948 ×3; 83921; 84207; 84425; 84443; 85025 ×3; 87040; 87086; 93005; 95812 ×2; 95816; 97110; 97139 ×3; 97162; 97530 ×2; G0378 ×4; J1650 ×4

== ENCOUNTER → 2020-02-23 | Outpatient (CLI) | payer OTHER ==
[~2020-02-23] MED LIST changes: +ARICEPT5 MG PO; +DORZOLAMIDE HCL10 ML OP; +FUROSEMIDE40 MG PO; +HYDROCHLOROTHIA25 MG PO; +JANUVIA100 MG PO; +LABETALOL HCL100 MG PO; +LATANOPROST2.5 ML OP; +LEVOTHYROXINE100 MC1 PO; +LEVOTHYROXINE50 MCG PO; +LEXAPRO10 MG PO; +LISINOPRIL2.5 MG PO; +LOSARTAN POTAS100 MG PO; +MUPIROCIN22 GM TOP; +REGADENOSON 0.4 MG/5 ML SYR IV ONE; +VITAMIN B-121000 MCG PO; +VITAMIN D1000 UNI1 PO
== END ==
LOC: NM 10:31
PROVIDERS: ATTEND Internal Medicine
DX: I49.1 Atrial premature depolarization (principal); I10 Essential (primary) hypertension; I49.9 Cardiac arrhythmia, unspecified
CPT/HCPCS: 78452; 93017; A9502

== ENCOUNTER → 2020-03-21 | Day surgery (SDC) | payer MEDICARE, OTHER ==
[2020-03-16 14:56] LABS: BASOPHILS % 0.7 % (0.0-1.0); EOSINOPHILS # (AUTO) 0.4 (0.0-0.4); EOSINOPHILS % 7.2 % (0.0-6.0); HEMATOCRIT 35.8 % (38.2-49.6); HEMOGLOBIN 11.5 g/dL (14.0-18.0); LYMPHOCYTES # (AUTO) 1.5 (1.0-3.2); LYMPHOCYTES % 26.4 % (18.0-39.1); MEAN CORPUSCULAR HEMOGLOBIN 29.9 pg (28-32); MEAN CORPUSCULAR HGB CONC 32.1 g/dL (31-35); MEAN CORPUSCULAR VOLUME 93.2 fL (81-99); MONOCYTES # (AUTO) 0.6 (0.2-0.8); MONOCYTES % 10.5 % (4.4-11.3); NEUTROPHILS % 54.7 % (38.7-80.0); PLATELET COUNT 167 x10e3/uL (140-360); RED BLOOD COUNT 3.84 x10e6/uL (4.3-5.7); RED CELL DISTRIBUTION WIDTH 14.9 % (11.7-14.4)
[2020-03-16 15:10] LABS: INR 0.8; PROTHROMBIN TIME 11.5 seconds (11.9-14.5)
[2020-03-16 15:18] LABS: ALBUMIN 3.6 g/dL (3.5-5.0); ANION GAP 12.9 mmol/L (8-16); CALCIUM 10.3 mg/dL (8.4-10.2); CREATININE, SERUM 1.94 mg/dL (0.72-1.25); POTASSIUM 3.9 mmol/L (3.5-5.1)
[~2020-03-21] VITALS: Ht 188 cm; Wt 86.2 kg
[2020-03-21] VITALS (13 sets, daily range): BP systolic 149–177; BP diastolic 65–88
[~2020-03-21] MED LIST changes: +ASPIRIN 325 MG TAB ONE; +CLOPIDOGREL BISULFATE 75 MG TAB ONE; +FENTANYL CITRATE/PF 100MCG/2 ML INJ ONE; +FENTANYL1 EAC1 TOP; +GABAPENTIN300 MG PO; +GLIMEPIRIDE2 MG PO; +HEPARIN SOD (PORCINE) 1000 UNIT/ML 30ML ONE; +HEPARIN SOD/SOD CHLORIDE 2,000 ML ONE; +IOPAMIDOL 370 MG/ML 200 ML INFUS..BTL INJ ONE; +LIDOCAINE HCL 2% LOCAL 20 ML VIAL ONE; +MIDAZOLAM HCL 2 MG/2 ML VIAL ONE; +NAMENDA10 MG PO; +NITROGLYCERIN/D5W 200 MCG/ML 250 ML ONE; +PERCOCET 7.5-31 EACH PO; -REGADENOSON 0.4 MG/5 ML SYR IV ONE; +SODIUM CHLORIDE 0.9% 1000ML 1,000 ML ONE; +VERAPAMIL HCL 2.5 MG/ML 2 ML VIAL ONE
[2020-03-21 09:15] LABS: ALBUMIN 3.7 g/dL (3.5-5.0); ALBUMIN/GLOBULIN RATIO 1.1 (0.8-2.0); ANION GAP 14.6 mmol/L (8-16); CALCIUM 10.2 mg/dL (8.4-10.2); CREATININE, SERUM 2.02 mg/dL (0.72-1.25); POTASSIUM 3.6 mmol/L (3.5-5.1)
--- NOTE | 2020-03-21 15:45 | NUR ---
IV to left hand removed by Steven Lambert RN. Dressing placed per unit protocol. Dressing left hand is clean, dry, and intact. Dressing left hand is clean,dry, and intact. Right forearm slight swelling proximal to right wrist site above Koban wrap. Koban wrap removed and redressed loosely. Swelling appears to have improved. Patient and patient's instructed to monitor for signs and symptoms of swelling at or around wrist site. Dressing left hand is clean,dry, and intact. patient and patient's verbalized understanding. Reviewed discharge instructions with patient and patient's Faby at bedside. Reviewed discharge instructions, activity restrictions, discharge medication reconciliation, dressing care, diet, and follow up instructions. Stent pamphlet including stent card for both stents, prescription for aspirin and plavix, education handouts regarding aspirin and plavix, and "Instructions for going home after Cardiac Catheterization Radial Access" handout provided. Patient and patient's verbalized understanding and had no questions at this time.
--- NOTE | 2020-05-04 21:45 | Operative Report ---
DATE OF PROCEDURE: 03/21/2020 SURGEON: Tex Garcia MD CARDIAC CATHETERIZATION REPORT INDICATIONS FOR PROCEDURE: Preoperative clearing abnormal stress test. PROCEDURES PERFORMED: 1. Coronary angiography right radial approach. 2. PCI to LAD with bare metal stents x2. PROCEDURE IN DETAIL: The patient was brought to the cardiac catheterization laboratory in a fasting state. The right wrist was prepped and draped in a sterile fashion. A 6-Qatari Slender sheath was inserted in the right radial artery using modified Seldinger technique. Coronary angiography was performed using a 5-Qatari [employer] radial catheter to engage both the left and right coronary systems. This demonstrated severe 90% proximal and 70% mid LAD lesion. We decided to proceed with PCI. For PCI of the LAD, XB 3.0 guide catheter was used for adequate support. Lesion was wired using a Runthrough wire. PCI to the LAD was performed using [place]ley REBEL 2.5 x 16 mm stent in the distal LAD and 2.5 x 16 mm stent in the proximal LAD, deployed at 14 atmospheres. This resulted in excellent angiographic result without any residual dissection, thrombus, or spasm. ACT near 300 was maintained throughout the procedure using IV boluses of heparin. All catheters removed over wire. The patient tolerated the procedure well. There were no immediate complications. SIGNIFICANT FINDINGS: Left main; large caliber, no significant CAD. LAD; large vessel goes to the apex, one significant diagonal branch, 90% focal stenosis of proximal LAD just before the origin of diagonal 1 and 70% stenosis of mid LAD. Left circumflex, nondominant large vessel. Two significant OM branches. No significant CAD. RCA; large dominant vessel, 40% to 50% plaque in the distal RCA, medium size PDA and PL branches. No significant CAD in the branches. GRAFTS AND IMPLANTS: Bare metal stent x2. SPECIMENS REMOVED: None. ESTIMATED BLOOD LOSS: 50 mL. FINAL RECOMMENDATIONS: 1. Continue aspirin 81 mg indefinitely, Plavix 75 mg daily for six weeks. 2. Follow up in clinic 2 weeks post procedure. Tex Garcia MD KVP/MODL /[id number]
== END | disposition home or self-care (01) ==
LOC: CATH LAB 08:22
PROVIDERS: ATTEND Internal Medicine
DX: I25.10 Atherosclerotic heart disease of native coronary artery without angina pectoris (principal); R94.39 Abnormal result of other cardiovascular function study; I49.1 Atrial premature depolarization; I10 Essential (primary) hypertension; E78.5 Hyperlipidemia, unspecified; E13.8 Other specified diabetes mellitus with unspecified complications; Z01.812 Encounter for preprocedural laboratory examination; Z11.59 Encounter for screening for other viral diseases; Z79.84 Long term (current) use of oral hypoglycemic drugs; Z82.49 Family history of ischemic heart disease and other diseases of the circulatory system
CPT/HCPCS: 93454; C9600; 36415; 80053; 85025; 85610; 92928; 99152; 99153; C1769; C1876; C1887; C1894; J1644; J2001; J2250; J3010; J7030; Q9967; U0002

== ENCOUNTER → 2021-02-03 | Outpatient (CLI) | payer MEDICARE ==
[~2021-02-03] MED LIST changes: -ASPIRIN 325 MG TAB ONE; -CLOPIDOGREL BISULFATE 75 MG TAB ONE; -FENTANYL CITRATE/PF 100MCG/2 ML INJ ONE; -HEPARIN SOD (PORCINE) 1000 UNIT/ML 30ML ONE; -HEPARIN SOD/SOD CHLORIDE 2,000 ML ONE; -IOPAMIDOL 370 MG/ML 200 ML INFUS..BTL INJ ONE; -LIDOCAINE HCL 2% LOCAL 20 ML VIAL ONE; -MIDAZOLAM HCL 2 MG/2 ML VIAL ONE; -NITROGLYCERIN/D5W 200 MCG/ML 250 ML ONE; -SODIUM CHLORIDE 0.9% 1000ML 1,000 ML ONE; -VERAPAMIL HCL 2.5 MG/ML 2 ML VIAL ONE
== END ==
LOC: DX 10:37
PROVIDERS: ATTEND Internal Medicine
DX: Z45.2 Encounter for adjustment and management of vascular access device (principal)
CPT/HCPCS: 36589